=== PATIENT | female | born 1945 | race Caucasian/White ===

== ENCOUNTER 2017-05-08 11:00 | Emergency (ER) | payer MEDICARE, BC ==
[2017-05-08] MEDS ORDERED: Aspirin 81 MG Tab.Chew PO ONE (11:16)
[2017-05-08] MEDS ORDERED: Sodium Chloride 0.9% 10 ML Syringe FLUSH PRN (11:16)
[2017-05-08] MEDS ORDERED: LORazepam 2 MG/ML MDV IVPUSH ONE (11:16)
[2017-05-08] MEDS ORDERED: Alum Hydrox/Mag Hydrox/Simeth 30 ML, Lidocaine 2% 15 ML PO ONE ×2 (11:16)
[2017-05-08] MEDS ORDERED: Nitroglycerin 0.4 MG Tab.SL SL ONE (11:16)
--- NOTE | 2017-05-08 11:27 | EDM.PDOC ---
ED HPI GENERAL MEDICAL PROBLEM - General Chief Complaint: Chest Pain Stated Complaint: CHEST PAIN Time Seen by Provider: 05/08/17 11:09 Source of Information: Reports: Patient History Limitations: Reports: No Limitations - History of Present Illness INITIAL COMMENTS - FREE TEXT/NARRATIVE: Patient is a 71-year-old female who presents to the ED complaining of substernal chest discomfort that radiates into her left side of her neck and into between her scapula. This started 3 days ago and has progressively gotten worse. She is mildly short of breath. Worsened with palpation and also taking a deep breath. She has also noticed with increasing breathing while being anxious symptoms worsen. She has been mildly diaphoretic and nauseated. Pain is described as sharp pressure sensation. Currently a 10 out of 10. In addition she has some acid reflux to her epigastric region described as mild in nature. Patient states symptoms have been waxing and waning progressively worsening over the course of the last day. She is quite anxious with arrival to the ED. She has no prior history of similar symptoms. Denies any precipitating factors that may have caused this discomfort. She has no coronary artery disease or first degree relatives with such. Denies any fever/chills, dizziness, presyncope /syncopal episode, abdominal pain, pain with urination, swelling to lower extremities, PND, orthopnea, or tearing sensation to her back. Chest Pain Score (Numeric/FACES): 6 - Related Data Allergies Allergy/AdvReac Type Severity Reaction Status Date / Time Penicillins Allergy Difficulty Verified 05/08/17 11:18 Breathing clarithromycin AdvReac Stomach Verified 05/08/17 11:18 Upset erythromycin base AdvReac Stomach Verified 05/08/17 11:18 Upset Home Meds: Home Meds Acetaminophen/oxyCODONE [Percocet 325-5 MG] 1 - 2 tab PO Q4H PRN #20 tab [Rx] Albuterol Sulfate [Albuterol Sulfate HFA] 2 puff IH Q4H PRN 03/23/14 [History] Benzonatate [Tessalon Perles] 100 mg PO TID 03/23/14 [History] Dicyclomine [Bentyl] 10 mg PO QID PRN 03/23/14 [History] Esomeprazole [NexIUM] 40 mg PO DAILY 03/23/14 [History] Estrogens, Conjugated [Premarin] 1.25 mg PO DAILY 03/23/14 [History] FLUoxetine HCl [Prozac] 3 cap PO DAILY 03/23/14 [History] Lactobacillus Combination No.4 [Probiotic] 1 each PO DAILY 03/23/14 [History] Multivitamin [Multivitamins] 1 each PO DAILY 03/23/14 [History] Social & Family History - Tobacco Use Years of Tobacco use: 45 Used Tobacco, but Quit: No Month Tobacco Last Used: March Second Hand Smoke Exposure: No - Alcohol Use Days Per Week of Alcohol Use: 0 - Recreational Drug Use Recreational Drug Use: No Recreational Drug Type: Reports: Benzodiazepines, Oxycodone ED ROS GENERAL - Review of Systems Review Of Systems: ROS reveals no pertinent complaints other than HPI. ED EXAM, GENERAL - Physical Exam Exam: See Below Exam Limited By: No Limitations General Appearance: Alert, WD/WN, Anxious, Moderate Distress Ears: Hearing Grossly Normal Nose: Normal Inspection Throat/Mouth: Normal Voice, No Airway Compromise Neck: Normal Inspection, Supple Respiratory/Chest: No Respiratory Distress, Lungs Clear, Normal Breath Sounds, No Accessory Muscle Use, Other (Pain with palpation along the sternum, left side of the chest, and up to the left clavicle.) Cardiovascular: Normal Peripheral Pulses, Regular Rate, Rhythm, No Murmur Peripheral Pulses: 2+: Radial (L), Radial (R) GI/Abdominal: Normal Bowel Sounds, Soft, No Organomegaly, No Distention, Other ( mild tenderness to the epigastric region. ) Back Exam: Normal Inspection Extremities: Normal Inspection, Normal Range of Motion, Non-Tender, No Pedal Edema, Normal Capillary Refill Neurological: Alert, Oriented, CN II-XII Intact, Normal Cognition, No Motor/ Sensory Deficits Psychiatric: Normal Affect, Anxious Skin Exam: Warm, Dry, Intact, Normal Color, No Rash Course - Vital Signs Last Recorded V/S: Last Vital Signs Temp 98.4 F 05/08/17 11:19 Pulse 74 05/08/17 14:30 Resp 12 05/08/17 14:30 BP 110/70 05/08/17 14:30 Pulse Ox 98 05/08/17 14:30 - Orders/Labs/Meds Orders: Active Orders 24 hr Category Date Time Status EKG Documentation Completion [RC] STAT Care 05/08/17 11:15 Active Peripheral IV Care [RC] . DIRECTED Care 05/08/17 11:16 Active Peripheral IV Insertion Adult [OM.PC] Stat Oth 05/08/17 11:15 Ordered Labs: Laboratory Tests 05/08/17 05/08/17 05/08/17 Range/Units 11:10 11:10 11:10 WBC 8.51 (3.98-10.04) K/mm3 RBC 4.41 (3.98-5.22) M/mm3 Hgb 14.1 (11.2-15.7) gm/L Hct 42.1 (34.1-44.9) % MCV 95.5 H (79.4-94.8) fl MCH 32.0 (25.6-32.2) pg MCHC 33.5 (32.2-35.5) g/dl RDW Std Deviation 46.8 H (36.4-46.3) fL Plt Count 283 (182-369) K/mm3 MPV 9.8 (9.4-12.3) fl Neut % (Auto) 57.0 (34.0-71.1) % Lymph % (Auto) 34.7 (19.3-51.7) % Wagoner % (Auto) 6.8 (4.7-12.5) % Eos % (Auto) 1.1 (0.7-5.8) Baso % (Auto) 0.2 (0.1-1.2) % Neut # (Auto) 4.85 (1.56-6.13) K/mm3 Lymph # (Auto) 2.95 (1.18-3.74) K/mm3 Wagoner # (Auto) 0.58 H (0.24-0.36) K/mm3 Eos # (Auto) 0.09 (0.04-0.36) K/mm3 Baso # (Auto) 0.02 (0.01-0.08) K/mm3 PT 9.7 (8.0-13.0) SECONDS INR 0.90 APTT 20 L (22-36) SECONDS D-Dimer, Quantitative (0.19-0.59) mg/L Sodium 138 (136-145) mEq/L Potassium 4.2 (3.5-5.1) mEq/L Chloride 103 (98-107) mEq/L Carbon Dioxide 29 (21-32) mEq/L Anion Gap 10.2 (5-15) BUN 19 H (7-18) mg/dL Creatinine 1.0 (0.55-1.02) mg/dL Est Cr Clr Drug Dosing 43.92 mL/min Estimated GFR (MDRD) 55 (>60) mL/min BUN/Creatinine Ratio 19.0 H (14-18) Glucose 99 (80-115) mg/dL Calcium 10.2 H (8.5-10.1) mg/dL Total Bilirubin 0.3 (0.2-1.0) mg/dL AST 58 H (15-37) U/L ALT 73 H (14-59) U/L Alkaline Phosphatase 95 (46-116) U/L Troponin I < 0.017 (0.00-0.056) ng/mL C-Reactive Protein < 0.2 (<1.0) mg/dL Total Protein 7.1 (6.4-8.2) g/dl Albumin 4.1 (3.4-5.0) g/dl Globulin 3.0 gm/dL Albumin/Globulin Ratio 1.4 (1-2) Lipase (73-393) U/L Ethyl Alcohol (0.00) gm% 05/08/17 05/08/17 05/08/17 Range/Units 11:10 11:10 11:10 WBC (3.98-10.04) K/mm3 RBC (3.98-5.22) M/mm3 Hgb (11.2-15.7) gm/L Hct (34.1-44.9) % MCV (79.4-94.8) fl MCH (25.6-32.2) pg MCHC (32.2-35.5) g/dl RDW Std Deviation (36.4-46.3) fL Plt Count (182-369) K/mm3 MPV (9.4-12.3) fl Neut % (Auto) (34.0-71.1) % Lymph % (Auto) (19.3-51.7) % Wagoner % (Auto) (4.7-12.5) % Eos % (Auto) (0.7-5.8) Baso % (Auto) (0.1-1.2) % Neut # (Auto) (1.56-6.13) K/mm3 Lymph # (Auto) (1.18-3.74) K/mm3 Wagoner # (Auto) (0.24-0.36) K/mm3 Eos # (Auto) (0.04-0.36) K/mm3 Baso # (Auto) (0.01-0.08) K/mm3 PT (8.0-13.0) SECONDS INR APTT (22-36) SECONDS D-Dimer, Quantitative 0.49 (0.19-0.59) mg/L Sodium (136-145) mEq/L Potassium (3.5-5.1) mEq/L Chloride (98-107) mEq/L Carbon Dioxide (21-32) mEq/L Anion Gap (5-15) BUN (7-18) mg/dL Creatinine (0.55-1.02) mg/dL Est Cr Clr Drug Dosing mL/min Estimated GFR (MDRD) (>60) mL/min BUN/Creatinine Ratio (14-18) Glucose (80-115) mg/dL Calcium (8.5-10.1) mg/dL Total Bilirubin (0.2-1.0) mg/dL AST (15-37) U/L ALT (14-59) U/L Alkaline Phosphatase (46-116) U/L Troponin I (0.00-0.056) ng/mL C-Reactive Protein (<1.0) mg/dL Total Protein (6.4-8.2) g/dl Albumin (3.4-5.0) g/dl Globulin gm/dL Albumin/Globulin Ratio (1-2) Lipase 137 (73-393) U/L Ethyl Alcohol 0.00 (0.00) gm% Meds: Medications Discontinued Medications Generic Name Dose Route Start Last Admin Trade Name Freq PRN Reason Stop Dose Admin Aspirin 243 mg 05/08/17 11:16 05/08/17 11:32 Aspirin PO 05/08/17 11:17 243 mg ONETIME ONE Administration Al Hydroxide/Mg Hydroxide 30 0 ml 05/08/17 11:16 05/08/17 11:34 ml/ Lidocaine HCl 15 ml PO 05/08/17 11:17 45 ml ONETIME ONE Administration Hydromorphone HCl 0.5 mg 05/08/17 11:44 05/08/17 12:02 Dilaudid IVPUSH 05/08/17 11:45 0.5 mg ONETIME ONE Administration Sodium Chloride 1,000 mls @ 150 mls/hr 05/08/17 11:30 Normal Saline IV ASDIRECTED BLANCA Ketorolac Tromethamine 30 mg 05/08/17 11:59 05/08/17 12:12 Toradol IVPUSH 05/08/17 12:00 30 mg ONETIME ONE Administration Lorazepam 0.5 mg 05/08/17 11:16 05/08/17 11:37 Ativan IVPUSH 05/08/17 11:17 0.5 mg ONETIME ONE Administration Nitroglycerin 0.4 mg 05/08/17 11:16 05/08/17 11:38 Nitrostat SL 05/08/17 11:17 0.4 mg ONETIME ONE Administration Sodium Chloride 10 ml 05/08/17 11:16 05/08/17 11:35 Saline Flush FLUSH 10 ml ASDIRECTED PRN Administration Keep Vein Open - Re-Assessments/Exams Free Text/Narrative Re-Assessment/Exam: IV established with normal saline 150 mL per hour, aspirin to 43 mg by mouth, GI cocktail by mouth, lorazepam 0.5 mg IV, and nitroglycerin 0.4 mg sublingual. Initial labs and studies include CBC, chem 14, CRP, d-dimer, PTT/INR, PTT, troponin, lipase, ekg, and chest x-ray one view. EKG sinus rhythm at a rate of [address] changes noted. Chest x-ray reviewed: Lungs appear to be hyperinflated with no cardiomegaly present. No acute findings noted. Final interpretation pending. Reviewed with Dr. Kapadia. 1142 Reassessment, patient states pain has not improved with the above therapies. She is anxious. Ordered dilaudid 0.5mg IVP and toradol 30 mg IVP. 05/08/17 12:51 Labs reviewed: White blood cell count 8.51, hemoglobin 14.1, platelet count 283, d-dimer 0.49, sodium 138, potassium 4.2, creatinine 1.0, calcium 10.2, glucose 99, AST 58, AST 73, alk phosphatase 95, troponin less than 0.017, CRP pending, lipase 137. Serum EtOH: 0 CRP 0.2 05/08/17 1257 Reassessment, patient's pain is currently a 4 out of 10. She is requesting pain medications upon discharge. She currently takes Percocet 53 25 one to 2 tabs every 4 hours as needed for back pain. She states this medication is not working. She is requesting Dilaudid. She has an appointment with her PCP on Saturday and is able to get a refill of Percocet tabs at that point. 1422 Patient requesting to be discharged home. Pain is mild in nature. Discharge instructions as documented. Departure - Departure Time of Disposition: 14:24 Disposition: Home, Self-Care 01 Condition: Good Clinical Impression: Atypical chest pain, Chest wall pain, Anxiety Instructions: Nonspecific Chest Pain, [id number] Referrals: Sanjeev Lai MD [Primary Care Provider] - Forms: ED Department Discharge Additional Instructions: As discussed EKG, chest x-ray, labs did not reveal any concerns the pain is currently expressing related to her heart. Since been going on the past 3 days the specific enzyme troponin should have been elevated if this is related to her heart. Pain was reproducible with palpation. Thus etiology is most likely chest wall pain. Treatment is symptomatically care including warm compresses to the affected area as needed. Ibuprofen 600 mg every 6 hours with food and water. Tylenol 650 mg every 6 hours and alternating fashion with the ibuprofen for pain. For severe pain take Percocet tabs 1-2 tabs every 4-6 hours as needed. Do not take the Tylenol with the Percocet tabs. Follow-up with your PCP this coming Saturday as scheduled. I have provided small number of additional Percocet tabs to that you can take 2 tabs every 4-6 hours for this new onset of pain. Return to ED as needed for any new or worsening symptoms. - My Orders Last 24 Hours: My Active Orders 05/08/17 11:15 EKG Documentation Completion [RC] STAT Peripheral IV Insertion Adult [OM.PC] Stat 05/08/17 11:16 Peripheral IV Care [RC] . DIRECTED - Assessment/Plan Last 24 Hours: My Active Orders 05/08/17 11:15 EKG Documentation Completion [RC] STAT Peripheral IV Insertion Adult [OM.PC] Stat 05/08/17 11:16 Peripheral IV Care [RC] . DIRECTED
[2017-05-08] MEDS ORDERED: Sodium Chloride 0.9% 1,000 ML IV SCH (11:30)
[2017-05-08] MEDS ORDERED: HYDROmorphone 0.5 MG/0.5 ML Syringe IVPUSH ONE (11:44)
[2017-05-08] MEDS ORDERED: Ketorolac 30 MG/ML SDV IVPUSH ONE (11:59)
--- NOTE | 2017-05-08 12:07 | CR ---
Chest: Frontal view of the chest was obtained. Comparison: Previous chest x-ray of 03/08/14. Heart size appears within normal limits. Tortuous thoracic aorta is seen. Lungs are clear. Previous right shoulder surgery is noted. Impression: 1. Incidental findings. Nothing acute is seen on frontal chest x-ray. Diagnostic code #2
[2017-05-08 15:58] VITALS: BP 110/70
== END 2017-05-08 14:40 | disposition home or self-care (01) ==
LOC: JD.ED 11:00
DX: R07.89 Other chest pain (principal); F41.9 Anxiety disorder, unspecified; Z79.899 Other long term (current) drug therapy; Z88.0 Allergy status to penicillin; Z88.1 Allergy status to other antibiotic agents
CPT/HCPCS: 36415; 71010; 80053; 83690; 84484; 85025; 85379; 85610; 85730; 86140; 93005; 96361; 96374; 96375; 99285; A9270; G0480; J1170; J1885; J2060; J7050; 99284

== ENCOUNTER 2018-01-13 09:34 | Emergency (ER) | payer MEDICARE, BC ==
[2018-01-13 09:43] VITALS: BP 140/86
[2018-01-13] MEDS ORDERED: Aspirin 81 MG Tab.Chew PO ONE (10:08)
--- NOTE | 2018-01-13 10:13 | EDM.PDOC ---
<Elaine Roman - Last Filed: 01/13/18 11:21> ED HPI GENERAL MEDICAL PROBLEM - General Chief Complaint: Chest Pain Stated Complaint: CHEST PAINS/HEADACHE ON LEFT SIDE Time Seen by Provider: 01/13/18 10:11 - History of Present Illness INITIAL COMMENTS - FREE TEXT/NARRATIVE: Patient is a 72 YO female who presents today for chest pain. She states the pain started around 0230 this morning. The pain is on the left side and states it goes into her armpit and down her arm. Described as sharp and shooting in nature. She states that when she pushes on her chest she can feel the pain. She says it feels like its difficult to breath due to the pain. She took Advil and hydrocodone this morning. She is on hydrocodone for back pain. She smokes 9-10 cigarets per day. Drinks frequently sometimes daily 3 glasses of wine. She denies recent long car rides or travel, or calf pain. She also complains of a headache that has been present for 3-4 weeks. She has seen her PCP who treated her for URI. The headache has not resolved. She describes it as a throbbing pain in the left side of her head, face and into her left jaw. Causing blurred vision in the left eye. She reports nausea when the headache is severe. Denies vomiting, diarrhea, cough, or fever. - Related Data Allergies Allergy/AdvReac Type Severity Reaction Status Date / Time Penicillins Allergy Difficulty Verified 01/13/18 09:38 Breathing clarithromycin AdvReac Stomach Verified 01/13/18 09:38 Upset erythromycin base AdvReac Stomach Verified 01/13/18 09:38 Upset Home Meds: Home Meds Acetaminophen/oxyCODONE [Percocet 325-5 MG] 1 - 2 tab PO Q4H PRN #20 tab [Rx] Albuterol Sulfate [Albuterol Sulfate HFA] 2 puff IH Q4H PRN 03/23/14 [History] Benzonatate [Tessalon Perles] 100 mg PO TID 03/23/14 [History] Dicyclomine [Bentyl] 10 mg PO QID PRN 03/23/14 [History] Esomeprazole [NexIUM] 40 mg PO DAILY 03/23/14 [History] Estrogens, Conjugated [Premarin] 1.25 mg PO DAILY 03/23/14 [History] FLUoxetine HCl [Prozac] 3 cap PO DAILY 03/23/14 [History] Lactobacillus Combination No.4 [Probiotic] 1 each PO DAILY 03/23/14 [History] Multivitamin [Multivitamins] 1 each PO DAILY 03/23/14 [History] ED ROS GENERAL - Review of Systems Review Of Systems: See Below Constitutional: Reports: No Symptoms HEENT: Reports: Vision Change (blurred vision in left eye) Respiratory: Reports: Shortness of Breath. Denies: Wheezing, Cough Cardiovascular: Reports: Chest Pain (left chest and radiating into left armpit and down the left arm) GI/Abdominal: Reports: Nausea. Denies: Abdominal Pain, Constipation, Diarrhea, Vomiting Musculoskeletal: Reports: Back Pain (chronic) Skin: Reports: No Symptoms Neurological: Reports: Headache Psychiatric: Reports: No Symptoms ED EXAM, GENERAL - Physical Exam Exam: See Below Exam Limited By: No Limitations General Appearance: Alert, WD/WN, No Apparent Distress Eye Exam: Bilateral Eye: EOMI, PERRL Head: Atraumatic, Normocephalic Neck: Normal Inspection, Supple, Non-Tender Respiratory/Chest: No Respiratory Distress, Normal Breath Sounds, Other (chest tender to palpation on the left side around ribs 3-4, course breath sounds in the lower lobs bilaterally) Cardiovascular: Regular Rate, Rhythm, No Murmur, Tachycardia GI/Abdominal: Normal Bowel Sounds, Soft, Non-Tender Neurological: Alert, Oriented, CN II-XII Intact, Normal Cognition, No Motor/ Sensory Deficits Psychiatric: Normal Affect, Anxious Skin Exam: Warm, Dry, Intact, Normal Color, No Rash Course - Vital Signs Last Recorded V/S: Last Vital Signs Temp 36.4 C 01/13/18 09:38 Pulse 114 H 01/13/18 09:38 Resp 18 01/13/18 09:38 BP 140/86 01/13/18 09:38 Pulse Ox 97 01/13/18 09:38 - Orders/Labs/Meds Orders: Active Orders 24 hr Category Date Time Status Chest 1V Frontal [CR] Stat Exams 01/13/18 10:09 Taken Head wo Cont [CT] Stat Exams 01/13/18 10:10 Taken Ketorolac [Toradol] Med 04/23/18 10:15 Active 30 mg IVPUSH ONETIME Sodium Chloride 0.9% [Normal Saline] 1,000 ml Med 01/13/18 10:15 Active IV ASDIRECTED Medication Orders Sodium Chloride (Normal Saline) 1,000 mls @ 150 mls/hr IV ASDIRECTED BLANCA Last Admin: 01/13/18 10:19 Dose: 150 mls/hr Ketorolac Tromethamine (Toradol) 30 mg IVPUSH ONETIME BLANCA Last Admin: 01/13/18 10:20 Dose: 30 mg Labs: Laboratory Tests 01/13/18 01/13/18 01/13/18 Range/Units 09:47 09:47 09:47 WBC 7.68 (3.98-10.04) K/mm3 RBC 4.37 (3.98-5.22) M/mm3 Hgb 13.9 (11.2-15.7) gm/L Hct 42.4 (34.1-44.9) % MCV 97.0 H (79.4-94.8) fl MCH 31.8 (25.6-32.2) pg MCHC 32.8 (32.2-35.5) g/dl RDW Std Deviation 45.9 (36.4-46.3) fL Plt Count 229 (182-369) K/mm3 MPV 10.2 (9.4-12.3) fl Neutrophils % (Manual) 50 (40-60) % Band Neutrophils % 0 (0-10) % Lymphocytes % (Manual) 46 H (20-40) % Atypical Lymphs % 0 % Monocytes % (Manual) 2 (2-10) % Eosinophils % (Manual) 2 (0.7-5.8) % Basophils % (Manual) 0 L (0.1-1.2) Platelet Estimate Adequate RBC Morph Comment Normal D-Dimer, Quantitative 0.40 (0.19-0.50) mg/L Sodium 137 (136-145) mEq/L Potassium 4.0 (3.5-5.1) mEq/L Chloride 103 (98-107) mEq/L Carbon Dioxide 25 (21-32) mEq/L Anion Gap 13.0 (5-15) BUN 15 (7-18) mg/dL Creatinine 1.1 H (0.55-1.02) mg/dL Est Cr Clr Drug Dosing 39.37 mL/min Estimated GFR (MDRD) 49 (>60) mL/min BUN/Creatinine Ratio 13.6 L (14-18) Glucose 163 H (80-115) mg/dL Calcium 10.0 (8.5-10.1) mg/dL Magnesium 1.8 (1.8-2.4) mg/dl Total Bilirubin 0.4 (0.2-1.0) mg/dL AST 40 H (15-37) U/L ALT 61 H (14-59) U/L Alkaline Phosphatase 93 (46-116) U/L CK-MB (CK-2) 5.2 H (0-3.6) ng/ml Troponin I < 0.017 (0.00-0.056) ng/mL C-Reactive Protein < 0.2 (<1.0) mg/dL NT-Pro-B Natriuret Pep (0-125) pg/mL Total Protein 6.8 (6.4-8.2) g/dl Albumin 4.2 (3.4-5.0) g/dl Globulin 2.6 gm/dL Albumin/Globulin Ratio 1.6 (1-2) 01/13/18 Range/Units 09:47 WBC (3.98-10.04) K/mm3 RBC (3.98-5.22) M/mm3 Hgb (11.2-15.7) gm/L Hct (34.1-44.9) % MCV (79.4-94.8) fl MCH (25.6-32.2) pg MCHC (32.2-35.5) g/dl RDW Std Deviation (36.4-46.3) fL Plt Count (182-369) K/mm3 MPV (9.4-12.3) fl Neutrophils % (Manual) (40-60) % Band Neutrophils % (0-10) % Lymphocytes % (Manual) (20-40) % Atypical Lymphs % % Monocytes % (Manual) (2-10) % Eosinophils % (Manual) (0.7-5.8) % Basophils % (Manual) (0.1-1.2) Platelet Estimate RBC Morph Comment D-Dimer, Quantitative (0.19-0.50) mg/L Sodium (136-145) mEq/L Potassium (3.5-5.1) mEq/L Chloride (98-107) mEq/L Carbon Dioxide (21-32) mEq/L Anion Gap (5-15) BUN (7-18) mg/dL Creatinine (0.55-1.02) mg/dL Est Cr Clr Drug Dosing mL/min Estimated GFR (MDRD) (>60) mL/min BUN/Creatinine Ratio (14-18) Glucose (80-115) mg/dL Calcium (8.5-10.1) mg/dL Magnesium (1.8-2.4) mg/dl Total Bilirubin (0.2-1.0) mg/dL AST (15-37) U/L ALT (14-59) U/L Alkaline Phosphatase (46-116) U/L CK-MB (CK-2) (0-3.6) ng/ml Troponin I (0.00-0.056) ng/mL C-Reactive Protein (<1.0) mg/dL NT-Pro-B Natriuret Pep 57 (0-125) pg/mL Total Protein (6.4-8.2) g/dl Albumin (3.4-5.0) g/dl Globulin gm/dL Albumin/Globulin Ratio (1-2) Meds: Medications Generic Name Dose Route Start Last Admin Trade Name Freq PRN Reason Stop Dose Admin Sodium Chloride 1,000 mls @ 150 mls/hr 01/13/18 10:15 01/13/18 10:19 Normal Saline IV 150 mls/hr ASDIRECTED BLANCA Administration Ketorolac Tromethamine 30 mg 01/13/18 10:15 01/13/18 10:20 Toradol IVPUSH 30 mg ONETIME BLANCA Administration Discontinued Medications Generic Name Dose Route Start Last Admin Trade Name Freq PRN Reason Stop Dose Admin Aspirin 324 mg 01/13/18 10:08 01/13/18 10:19 Aspirin PO 01/13/18 10:09 324 mg ONETIME ONE Administration Lorazepam 1 mg 01/13/18 10:30 01/13/18 10:39 Ativan IVPUSH 01/13/18 10:31 1 mg ONETIME ONE Administration - Re-Assessments/Exams Free Text/Narrative Re-Assessment/Exam: 01/13/18 9:56 Patient is quite anxious in the room today. Chest pain is reproducible to palpation around ribs 3-4. The pain is also reproduced with palpation in the armpit. Patient is neurologically intact with no focal findings. Labs have been ordered to include CBC, CBP, D-dimer, troponin I, Ck-MB, chest Xray and head CT. 01/13/18 11:05 Patient is still very anxious about her headache. Patient has received Ativan. I discussed CT results with the patient. There are no signs of acute changes that would be causing her headaches. I discussed with the patient that we can control her pain today but I believe her headache are refractory headaches from the ibuprofen and narcotics that she uses. She does have an appointment scheduled with a neurologist in a couple months. Departure - Departure Disposition: Home, Self-Care 01 Clinical Impression: Chronic daily headache, Non-cardiac chest pain, Chest wall pain Referrals: Sanjeev Lai MD [Primary Care Provider] - Forms: ED Department Discharge Additional Instructions: Evaluation the emergency room today in regards to presentation primarily for chest pain and identified to be significantly tender throughout the left ribs particularly the third fourth and fifth left mid axillary line. This radiates into your armpit. Suspect characteristic of inflammation of the rib lining in this area secondary to osteoporosis. X-ray was done and shows no obvious abnormalities within the ribs themselves. Heart silhouette is normal and the lungs are clear. Second problem was chronic headache for over a month. Chronic daily headache is likely related to excessive use of Motrin and pain medications. CT of the head was done at your request and reveals no intracranial bleeding or mass effect. 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 You are treated with intravenous anti-inflammatory medications initial medication was aspirin 324 mg for chest pain. Until labs came back and ruled out any evidence of heart related illness. Toradol 30 mg was given intravenously for inflammation and headache relief. Apparently it did not help much. Decision was made not to use narcotics as you are on narcotics chronically and/or on a pain contract. Case discussed with your primary care physician Dr. Lai and he agreed with this course of management. - My Orders Last 24 Hours: My Active Orders 01/13/18 10:09 Chest 1V Frontal [CR] Stat 01/13/18 10:10 Head wo Cont [CT] Stat 01/13/18 10:15 Ketorolac [Toradol] 30 mg IVPUSH ONETIME Sodium Chloride 0.9% [Normal Saline] 1,000 ml IV ASDIRECTED - Assessment/Plan Last 24 Hours: My Active Orders 01/13/18 10:09 Chest 1V Frontal [CR] Stat 01/13/18 10:10 Head wo Cont [CT] Stat 01/13/18 10:15 Ketorolac [Toradol] 30 mg IVPUSH ONETIME Sodium Chloride 0.9% [Normal Saline] 1,000 ml IV ASDIRECTED <González Moffett - Last Filed: 01/13/18 11:51> ED HPI GENERAL MEDICAL PROBLEM - General Source of Information: Reports: Patient History Limitations: Reports: No Limitations - History of Present Illness Treatments TELEPHONE INTERVIEWER: Reports: Other (see below) Other Treatments TELEPHONE INTERVIEWER: advil 600 mg and Hydrocodone at 0600. Headache Pain Score (Numeric/FACES): 9 Chest Pain Score (Numeric/FACES): 9 Past Medical History Other HEENT History: wears glasses Respiratory History: Reports: SOB Neurological History: Reports: Headaches, Chronic Psychiatric History: Reports: Anxiety, Depression - Past Surgical History HEENT Surgical History: Reports: Cataract Surgery, Tonsillectomy GI Surgical History: Reports: Appendectomy, Cholecystectomy, Colonoscopy Female Surgical History: Reports: Hysterectomy Neurological Surgical History: Reports: Lumbar Spine Social & Family History - Tobacco Use Smoking Status *Q: Current Every Day Smoker Years of Tobacco use: 50 Packs/Tins Daily: 0.5 Used Tobacco, but Quit: No Month/Year Tobacco Last Used: March Second Hand Smoke Exposure: No - Caffeine Use Caffeine Use: Reports: Coffee - Alcohol Use Days Per Week of Alcohol Use: 0 Number of Drinks Per Day: 2 Total Drinks Per Week: 0 - Recreational Drug Use Recreational Drug Use: No Recreational Drug Type: Reports: Benzodiazepines, Oxycodone EKG INTERPRETATION EKG Date: 01/13/18 Time: 09:45 Rhythm: Other Rate (Beats/Min): [address] [place]: Normal P-Wave: Absent (P waves inverted in all leads suggesting ectopic atrial rhythm.) QRS: Normal ST-T: Normal QT: Prolonged (Minimally prolonged.) EKG Interpretation Comments: Abnormal ECG. No ischemic changes identified. Course - Orders/Labs/Meds Labs: Laboratory Tests 01/13/18 01/13/18 01/13/18 Range/Units 09:47 09:47 09:47 WBC 7.68 (3.98-10.04) K/mm3 RBC 4.37 (3.98-5.22) M/mm3 Hgb 13.9 (11.2-15.7) gm/L Hct 42.4 (34.1-44.9) % MCV 97.0 H (79.4-94.8) fl MCH 31.8 (25.6-32.2) pg MCHC 32.8 (32.2-35.5) g/dl RDW Std Deviation 45.9 (36.4-46.3) fL Plt Count 229 (182-369) K/mm3 MPV 10.2 (9.4-12.3) fl Neutrophils % (Manual) 50 (40-60) % Band Neutrophils % 0 (0-10) % Lymphocytes % (Manual) 46 H (20-40) % Atypical Lymphs % 0 % Monocytes % (Manual) 2 (2-10) % Eosinophils % (Manual) 2 (0.7-5.8) % Basophils % (Manual) 0 L (0.1-1.2) Platelet Estimate Adequate RBC Morph Comment Normal D-Dimer, Quantitative 0.40 (0.19-0.50) mg/L Sodium 137 (136-145) mEq/L Potassium 4.0 (3.5-5.1) mEq/L Chloride 103 (98-107) mEq/L Carbon Dioxide 25 (21-32) mEq/L Anion Gap 13.0 (5-15) BUN 15 (7-18) mg/dL Creatinine 1.1 H (0.55-1.02) mg/dL Est Cr Clr Drug Dosing 39.37 mL/min Estimated GFR (MDRD) 49 (>60) mL/min BUN/Creatinine Ratio 13.6 L (14-18) Glucose 163 H (80-115) mg/dL Calcium 10.0 (8.5-10.1) mg/dL Magnesium 1.8 (1.8-2.4) mg/dl Total Bilirubin 0.4 (0.2-1.0) mg/dL AST 40 H (15-37) U/L ALT 61 H (14-59) U/L Alkaline Phosphatase 93 (46-116) U/L CK-MB (CK-2) 5.2 H (0-3.6) ng/ml Troponin I < 0.017 (0.00-0.056) ng/mL C-Reactive Protein < 0.2 (<1.0) mg/dL NT-Pro-B Natriuret Pep (0-125) pg/mL Total Protein 6.8 (6.4-8.2) g/dl Albumin 4.2 (3.4-5.0) g/dl Globulin 2.6 gm/dL Albumin/Globulin Ratio 1.6 (1-2) 01/13/18 Range/Units 09:47 WBC (3.98-10.04) K/mm3 RBC (3.98-5.22) M/mm3 Hgb (11.2-15.7) gm/L Hct (34.1-44.9) % MCV (79.4-94.8) fl MCH (25.6-32.2) pg MCHC (32.2-35.5) g/dl RDW Std Deviation (36.4-46.3) fL Plt Count (182-369) K/mm3 MPV (9.4-12.3) fl Neutrophils % (Manual) (40-60) % Band Neutrophils % (0-10) % Lymphocytes % (Manual) (20-40) % Atypical Lymphs % % Monocytes % (Manual) (2-10) % Eosinophils % (Manual) (0.7-5.8) % Basophils % (Manual) (0.1-1.2) Platelet Estimate RBC Morph Comment D-Dimer, Quantitative (0.19-0.50) mg/L Sodium (136-145) mEq/L Potassium (3.5-5.1) mEq/L Chloride (98-107) mEq/L Carbon Dioxide (21-32) mEq/L Anion Gap (5-15) BUN (7-18) mg/dL Creatinine (0.55-1.02) mg/dL Est Cr Clr Drug Dosing mL/min Estimated GFR (MDRD) (>60) mL/min BUN/Creatinine Ratio (14-18) Glucose (80-115) mg/dL Calcium (8.5-10.1) mg/dL Magnesium (1.8-2.4) mg/dl Total Bilirubin (0.2-1.0) mg/dL AST (15-37) U/L ALT (14-59) U/L Alkaline Phosphatase (46-116) U/L CK-MB (CK-2) (0-3.6) ng/ml Troponin I (0.00-0.056) ng/mL C-Reactive Protein (<1.0) mg/dL NT-Pro-B Natriuret Pep 57 (0-125) pg/mL Total Protein (6.4-8.2) g/dl Albumin (3.4-5.0) g/dl Globulin gm/dL Albumin/Globulin Ratio (1-2) - Re-Assessments/Exams Free Text/Narrative Re-Assessment/Exam: 01/13/18: CT of the head reveals no intracranial bleeding or mass effect. There is diffuse small vessel ischemic changes in both basal ganglia. 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 S x -ray revealed her to be rotated slightly to the right. This makes the superior mediastinum look a little more prominent with a tortuous thoracic aorta. Chronic silhouette is otherwise within normal limits. Visualized portions of the lungs are clear. 01/13/18 11:07 Labs are back. White count is 7.68 with normal differential of 50% neutrophils no bands reported. Hemoglobin is 13.9 with hematocrit of 42.4. Platelet count is 229,000. D-dimer is normal at 0.40. Sodium is 137 with potassium of 4.0. Toward is 103 with a bicarbonate of 25. And a gap is 13.0. BUN is 15 with a creatinine of 1.1. GFR is 49. Glucose is mildly elevated 163. Calcium 10.0. Magnesium 1.8. Total bilirubin 0.4. AST is 40 with an AST of 61. Alkaline phosphatase is normal at 93. Seek KUB fraction mildly elevated at 5.2. Troponin I is less than 0.017. BNP is 57. Patient is unhappy with the treatment she has thus received. She reports no relief of her headache. Headache for over a month is likely tension or originates in her cervical spine. We have a feeling that she may be narcotic seeking. She is wishing to leave the department at this time and will therefore be to leave AGAINST MEDICAL ADVICE. Reassured that all of her lab work and chest x-ray and ECG are within normal limits. Patient is primarily frustrated by not receiving narcotics for her chronic headache. Departure - Departure Time of Disposition: 11:48 Condition: Fair
[2018-01-13] MEDS ORDERED: Ketorolac 30 MG/ML SDV IVPUSH SCH (10:15)
[2018-01-13] MEDS ORDERED: Sodium Chloride 0.9% 1,000 ML IV SCH (10:15)
[2018-01-13] MEDS ORDERED: LORazepam 2 MG/ML SDV IVPUSH ONE (10:30)
--- NOTE | 2018-01-13 12:02 | CT ---
Head CT Technique: Multiple axial sections through the brain were obtained. Intravenous contrast was not utilized. Comparison: Previous head CT exam of 01/03/12. Findings: Ventricles along with basal cisterns and sulci over the convexities are within normal limits for the patient's age. 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 No other abnormal parenchymal densities are seen. No evidence of intracranial hemorrhage. No midline shift or mass effect is seen. Moderate mucosal thickening is seen within the sphenoid sinus which is chronic and appears fairly stable from previous head CT exam. No acute calvarial abnormality is identified. Impression: 1. Chronic sinus findings within the sphenoid sinus. 2. Senescent change as noted above. 3. No acute intracranial abnormality is identified on noncontrast head CT exam. Diagnostic code #2 Agree with preliminary report issued by [facility] ([facility] preliminary report dictated on 01/13/18, 11:48 AM Central Time)
--- NOTE | 2018-01-13 13:01 | CR ---
Chest: Frontal view of the chest was obtained. Comparison: Prior chest x-ray of 05/08/17. Heart size is normal. Tortuous thoracic aorta is seen. Lungs are clear. Bony structures are unremarkable. Surgical clips are seen within the upper right abdomen. Impression: 1. Nothing acute is seen on frontal chest x-ray. Diagnostic code #2
== END 2018-01-13 11:58 | disposition home or self-care (01) ==
LOC: JD.ED 09:34
DX: R07.89 Other chest pain (principal); R51 Headache; Z88.0 Allergy status to penicillin; Z88.1 Allergy status to other antibiotic agents; Z79.899 Other long term (current) drug therapy
CPT/HCPCS: 36415; 70450; 71045; 80053; 82553; 83735; 83880; 84484; 85025; 85379; 86140; 96361; 96374; 96375; 99285; A9270; J1885; J2060; J7040; 93010; 99284

== ENCOUNTER 2018-03-27 08:51 | Emergency (ER) | payer MEDICARE, BC ==
[2018-03-27] MEDS ORDERED: Sodium Chloride 0.9% 10 ML Syringe FLUSH PRN (09:17)
[2018-03-27] MEDS ORDERED: HYDROmorphone 0.5 MG/0.5 ML SYRINGE IVPUSH ONE ×4 (09:18→14:44)
--- NOTE | 2018-03-27 09:31 | EDM.PDOC ---
ED HPI GENERAL MEDICAL PROBLEM - General Chief Complaint: Respiratory Problem Stated Complaint: [facility] Time Seen by Provider: 03/27/18 09:09 Source of Information: Reports: Patient, EMS History Limitations: Reports: No Limitations - History of Present Illness INITIAL COMMENTS - FREE TEXT/NARRATIVE: The patient presents from [facility] for shortness of breath, cough and chest pain. This has been going on for about 2 weeks. She went to the walk in clinic over at [place] 2 days ago and she was diagnosed with LLL pneumonia and she was put on prednisone and doxycycline. She feels she is worse. She went back to the clinic and they were doing a CT and she got short of breath. She was brought here by EMS. She was given a breathing treatment on the way here. She feels feverish. She has congestion, runny nose , and productive cough. She has tightness in her chest. She has shortness of breath and wheezing at times. She has no abdominal pain, nausea or vomiting. She has no history of asthma or COPD. She smokes. She also has a headache. Onset: Gradual Duration: Week(s): (2) Location: Reports: Chest Quality: Reports: Other (Tightness) Severity: Moderate Improves with: Reports: None Worsens with: Reports: None Associated Symptoms: Reports: Chest Pain, Cough, cough w sputum, Fever/Chills, Shortness of Breath. Denies: Headaches, Nausea/Vomiting Treatments FINAL TESTER: Reports: Breathing Treatments Headache Pain Score (Numeric/FACES): 7 - Related Data Allergies Allergy/AdvReac Type Severity Reaction Status Date / Time Penicillins Allergy Difficulty Verified 01/13/18 09:38 Breathing clarithromycin AdvReac Stomach Verified 01/13/18 09:38 Upset erythromycin base AdvReac Stomach Verified 01/13/18 09:38 Upset Home Meds: Home Meds Albuterol Sulfate [Albuterol Sulfate HFA] 2 puff IH Q4H PRN 03/23/14 [History] Benzonatate [Tessalon Perles] 100 mg PO TID PRN 03/23/14 [History] Dicyclomine [Bentyl] 10 mg PO QID PRN 03/23/14 [History] FLUoxetine HCl [Prozac] 3 cap PO DAILY 03/23/14 [History] Lactobacillus Combination No.4 [Probiotic] 1 - 2 each PO DAILY 03/23/14 [History ] Acetaminophen 1 - 2 tab PO Q6H PRN 03/27/18 [History] Albuterol [Proventil Neb Soln] 1 ampule INH QID PRN 03/27/18 [History] Aspirin 81 mg PO DAILY 03/27/18 [History] Cholecalciferol (Vitamin D3) [Vitamin D3] 3,000 unit PO DAILY 03/27/18 [History] ClonazePAM [KlonoPIN] 0.5 mg PO BID 03/27/18 [History] Codeine/Promethazine [Phenergan with Codeine] 5 - 10 ml PO Q6HR PRN #240 ml 02/07 [Rx] Doxycycline [Doxycycline Hyclate] 100 mg PO BID 03/27/18 [History] Fluticasone Propionate [Flonase] 1 spray NASBOTH BID 03/27/18 [History] Hydrocodone/Acetaminophen [Hydrocodon-Acetaminophn 10-325] 1 tab PO Q6H PRN 02/07 [History] Loratadine/Pseudoephedrine [Loratadine-D 12HR] 1 tab PO DAILY PRN 03/27/18 [ History] Jj B-Stress. 3 tab PO DAILY 03/27/18 [History] predniSONE [Prednisone] 20 mg PO DAILY 03/27/18 [History] Past Medical History Other HEENT History: wears glasses Respiratory History: Reports: SOB Neurological History: Reports: Headaches, Chronic Psychiatric History: Reports: Anxiety, Depression - Past Surgical History HEENT Surgical History: Reports: Cataract Surgery, Tonsillectomy GI Surgical History: Reports: Appendectomy, Cholecystectomy, Colonoscopy Female Surgical History: Reports: Hysterectomy Neurological Surgical History: Reports: Lumbar Spine Social & Family History - Tobacco Use Smoking Status *Q: Current Every Day Smoker Years of Tobacco use: 40 Packs/Tins Daily: 0.4 - Caffeine Use Caffeine Use: Reports: Coffee - Recreational Drug Use Recreational Drug Use: No ED ROS GENERAL - Review of Systems Review Of Systems: See Below Constitutional: Reports: No Symptoms HEENT: Reports: No Symptoms Respiratory: Reports: Shortness of Breath, Wheezing, Cough Cardiovascular: Reports: Chest Pain Endocrine: Reports: No Symptoms GI/Abdominal: Reports: No Symptoms : Reports: No Symptoms Musculoskeletal: Reports: No Symptoms Skin: Reports: No Symptoms ED EXAM, GENERAL - Physical Exam Exam: See Below Exam Limited By: No Limitations General Appearance: Alert, No Apparent Distress Ears: Normal External Exam Nose: Normal Inspection Head: Atraumatic, Normocephalic Neck: Normal Inspection Respiratory/Chest: No Respiratory Distress, Decreased Breath Sounds, Wheezing ( Mild) Cardiovascular: Regular Rate, Rhythm, No Edema, No Murmur GI/Abdominal: Soft, Non-Tender, No Organomegaly, No Mass Back Exam: Normal Inspection Extremities: Normal Inspection EKG INTERPRETATION EKG Date: 03/27/18 Time: 09:23 Rhythm: Other (Sinus tachycardia) Rate (Beats/Min): 112 [place]: Normal P-Wave: Present QRS: Normal ST-T: Normal QT: Normal Course - Vital Signs Last Recorded V/S: Last Vital Signs Temp 98.7 F 03/27/18 08:56 Pulse 95 03/27/18 08:56 Resp 12 03/27/18 08:56 BP 123/84 03/27/18 08:56 Pulse Ox 99 03/27/18 08:56 - Orders/Labs/Meds Orders: Active Orders 24 hr Category Date Time Status Cardiac Monitoring [RC] . DIRECTED Care 03/27/18 09:17 Active EKG Documentation Completion [RC] STAT Care 03/27/18 09:18 Active Oxygen Therapy [RC] PRN Care 03/27/18 09:17 Active Peripheral IV Care [RC] . DIRECTED Care 03/27/18 09:18 Active MYCOPLASMA PNEUMONIAE IGM AB [CHEM] Stat Lab 03/27/18 09:45 Received Sodium Chloride 0.9% [Normal Saline] 100 ml Med 03/27/18 10:45 Active IV ASDIRECTED Sodium Chloride 0.9% [Saline Flush] Med 03/27/18 09:17 Active 10 ml FLUSH ASDIRECTED PRN Peripheral IV Insertion Adult [OM.PC] Stat Oth 03/27/18 09:17 Ordered Medication Orders Sodium Chloride (Normal Saline) 100 mls @ 60 mls/hr IV ASDIRECTED BLANCA Last Admin: 03/27/18 11:13 Dose: 60 mls/hr Sodium Chloride (Saline Flush) 10 ml FLUSH ASDIRECTED PRN PRN Reason: Keep Vein Open Last Admin: 03/27/18 09:33 Dose: 10 ml Labs: Laboratory Tests 07/05/18 07/05/18 Range/Units 09:45 09:45 WBC 8.45 (3.98-10.04) K/mm3 RBC 4.47 (3.98-5.22) M/mm3 Hgb 14.2 (11.2-15.7) gm/L Hct 43.6 (34.1-44.9) % MCV 97.5 H (79.4-94.8) fl MCH 31.8 (25.6-32.2) pg MCHC 32.6 (32.2-35.5) g/dl RDW Std Deviation 49.0 H (36.4-46.3) fL Plt Count 330 (182-369) K/mm3 MPV 8.8 L (9.4-12.3) fl Neut % (Auto) 79.9 H (34.0-71.1) % Lymph % (Auto) 17.8 L (19.3-51.7) % [place] % (Auto) 2.0 L (4.7-12.5) % Eos % (Auto) 0 L (0.7-5.8) Baso % (Auto) 0.1 (0.1-1.2) % Neut # (Auto) 6.75 H (1.56-6.13) K/mm3 Lymph # (Auto) 1.50 (1.18-3.74) K/mm3 [place] # (Auto) 0.17 L (0.24-0.36) K/mm3 Eos # (Auto) 0.00 L (0.04-0.36) K/mm3 Baso # (Auto) 0.01 (0.01-0.08) K/mm3 Sodium 137 (136-145) mEq/L Potassium 4.1 (3.5-5.1) mEq/L Chloride 103 (98-107) mEq/L Carbon Dioxide 23 (21-32) mEq/L Anion Gap 15.1 H (5-15) BUN 24 H (7-18) mg/dL Creatinine 1.1 H (0.55-1.02) mg/dL Est Cr Clr Drug Dosing 39.37 mL/min Estimated GFR (MDRD) 49 (>60) mL/min BUN/Creatinine Ratio 21.8 H (14-18) Glucose 132 H (80-115) mg/dL Calcium 9.7 (8.5-10.1) mg/dL Total Bilirubin 0.3 (0.2-1.0) mg/dL AST 25 (15-37) U/L ALT 48 (14-59) U/L Alkaline Phosphatase 88 (46-116) U/L Troponin I < 0.017 (0.00-0.056) ng/mL Total Protein 7.0 (6.4-8.2) g/dl Albumin 4.0 (3.4-5.0) g/dl Globulin 3.0 gm/dL Albumin/Globulin Ratio 1.3 (1-2) Meds: Medications Generic Name Dose Route Start Last Admin Trade Name Freq PRN Reason Stop Dose Admin Sodium Chloride 100 mls @ 60 mls/hr 03/27/18 10:45 03/27/18 11:13 Normal Saline IV 60 mls/hr ASDIRECTED BLANCA Administration Sodium Chloride 10 ml 03/27/18 09:17 03/27/18 09:33 Saline Flush FLUSH 10 ml ASDIRECTED PRN Administration Keep Vein Open Discontinued Medications Generic Name Dose Route Start Last Admin Trade Name Freq PRN Reason Stop Dose Admin Hydromorphone HCl 0.5 mg 03/27/18 09:18 03/27/18 09:31 Dilaudid IVPUSH 03/27/18 09:19 0.5 mg ONETIME ONE Administration Hydromorphone HCl 0.5 mg 03/27/18 10:14 03/27/18 10:19 Dilaudid IVPUSH 03/27/18 10:15 0.5 mg ONETIME ONE Administration Hydromorphone HCl 0.5 mg 03/27/18 12:39 03/27/18 12:54 Dilaudid IVPUSH 03/27/18 12:40 0.5 mg ONETIME ONE Administration Ceftriaxone Sodium 2 gm/ 100 mls @ 100 mls/hr 03/27/18 12:38 03/27/18 12:55 Sodium Chloride IV 03/27/18 13:37 100 mls/hr ONETIME ONE Administration Iopamidol 100 ml 03/27/18 10:36 03/27/18 11:13 Isovue-370 (76%) IVPUSH 03/27/18 10:37 100 ml ONETIME ONE Administration Lorazepam 1 mg 03/27/18 10:37 03/27/18 10:43 Ativan IVPUSH 03/27/18 10:38 1 mg ONETIME ONE Administration Sodium Chloride 10 ml 03/27/18 10:36 03/27/18 11:13 Saline Flush FLUSH 03/27/18 10:37 10 ml ONETIME ONE Administration - Re-Assessments/Exams Free Text/Narrative Re-Assessment/Exam: 03/27/18 09:54 I ordered an IV saline lock, EKG, and labs. I will check on what CTs they did and see if I can get results. I gave her some dilaudid for her headache. 03/27/18 14:35 Her EKG shows nothing acute. Her CBC looks good with a normal WBC. Her creatinine is slightly elevated at 1.1. Her glucose is elevated at 132. Her troponin is negative. Her CT of her chest shows nothing seen to indicate pulmonary embolism. Other incidental findings. No significant change is seen from the previous CT abdomen and pelvis exam. Her CT of her head from the clinic shows mild mucoperiosteal thickening in the ethmoid air cells. Of incidental note is mild mucoperiosteal thickening in the sphenoid sinus as well. I gave her a dose of rocephin. I let the patient know the results and she is frustrated with me that she is not better for the past few months. It appears from her labs and CT that she is getting better. I talked with Dr Llanos to see if she can get admitted. She agreed with me that she did not need to be admitted. I will discharge the patient to home and give her some phenergan with codeine. I will have her keep taking her doxycycline and prednisone. Departure - Departure Time of Disposition: 14:45 Disposition: Home, Self-Care 01 Condition: Good Clinical Impression: Bronchitis, Congestion of throat - Discharge Information Prescriptions: Codeine/Promethazine [Phenergan with Codeine] 5 - 10 ml PO Q6HR PRN #240 ml PRN Reason: Cough Referrals: Sanjeev Lai MD [Primary Care Provider] - 1 Week Forms: ED Department Discharge Additional Instructions: Keep taking your medication as prescribed. Take the phenergan with codeine 5 to 10mls by mouth every 6 hours as needed for cough. Follow up with your doctor in 1 week. - My Orders Last 24 Hours: My Active Orders 07/05/18 09:17 Cardiac Monitoring [RC] . DIRECTED Oxygen Therapy [RC] PRN Sodium Chloride 0.9% [Saline Flush] 10 ml FLUSH ASDIRECTED PRN Peripheral IV Insertion Adult [OM.PC] Stat 03/27/18 09:18 EKG Documentation Completion [RC] STAT Peripheral IV Care [RC] . DIRECTED 03/27/18 09:45 MYCOPLASMA PNEUMONIAE IGM AB [CHEM] Stat 03/27/18 10:45 Sodium Chloride 0.9% [Normal Saline] 100 ml IV ASDIRECTED - Assessment/Plan Last 24 Hours: My Active Orders 03/27/18 09:17 Cardiac Monitoring [RC] . DIRECTED Oxygen Therapy [RC] PRN Sodium Chloride 0.9% [Saline Flush] 10 ml FLUSH ASDIRECTED PRN Peripheral IV Insertion Adult [OM.PC] Stat 03/27/18 09:18 EKG Documentation Completion [RC] STAT Peripheral IV Care [RC] . DIRECTED 03/27/18 09:45 MYCOPLASMA PNEUMONIAE IGM AB [CHEM] Stat 03/27/18 10:45 Sodium Chloride 0.9% [Normal Saline] 100 ml IV ASDIRECTED
[2018-03-27] MEDS ORDERED: Sodium Chloride 0.9% 10 ML Syringe FLUSH ONE (10:36)
[2018-03-27] MEDS ORDERED: Iopamidol 755 Mg/ML 100 ML Bottle IVPUSH ONE (10:36)
[2018-03-27] MEDS ORDERED: LORazepam 2 MG/ML SDV IVPUSH ONE (10:37)
[2018-03-27] MEDS ORDERED: Sodium Chloride 0.9% 100 ML IV SCH (10:45)
[2018-03-27] MEDS ORDERED: cefTRIAXone 2 GM in Sodium Chloride 0.9% 100 ML IV ONE (12:38)
--- NOTE | 2018-03-27 12:45 | CT ---
CT chest Technique: Multiple axial sections through the chest were obtained. Intravenous contrast was utilized. Study has been performed as a pulmonary angiogram protocol. Comparison: Prior CT chest performed as a pulmonary angiogram protocol dated 03/10/15. Findings: Pulmonary arteries are well opacified. No filling defects are seen to indicate pulmonary embolism. Mediastinum and hilar regions show no adenopathy or mass. Ascending aorta is slightly ectatic at 3.3 cm which is incidental. No mediastinal mass or adenopathy is seen. Hilar regions appear within normal limits. No pericardial thickening is seen. Surgical clips are seen from prior cholecystectomy. Lungs are clear. No pleural effusions are seen. Bone window settings were reviewed which show no acute osseous abnormality. Impression: 1. Nothing seen to indicate pulmonary embolism. 2. Other incidental findings. No significant change is seen from previous CT abdomen and pelvis exam. Diagnostic code #2
[2018-03-27 14:59] VITALS: BP 123/71
== END 2018-03-27 15:05 | disposition home or self-care (01) ==
LOC: JD.ED 08:51
DX: J40 Bronchitis, not specified as acute or chronic (principal); F17.210 Nicotine dependence, cigarettes, uncomplicated; Z88.0 Allergy status to penicillin; Z88.1 Allergy status to other antibiotic agents; Z79.899 Other long term (current) drug therapy
CPT/HCPCS: 36415; 71275; 80053; 84484; 85025; 86738; 93005; 96365; 96375; 96376; 99285; J0696; J1170; J2060; J7030; J7050; Q9967

== ENCOUNTER 2018-12-13 17:07 | Emergency (ER) | payer MEDICARE, BC ==
[2018-12-13 17:20] VITALS: BP 138/85
[2018-12-13] MEDS ORDERED: Sodium Chloride 0.9% 10 ML Syringe FLUSH PRN (17:32)
[2018-12-13] MEDS ORDERED: HYDROmorphone 1 MG/ML Syringe IVPUSH ONE ×2 (17:34→19:15)
--- NOTE | 2018-12-13 18:53 | EDM.PDOC ---
ED HPI GENERAL MEDICAL PROBLEM - General Chief Complaint: Chest Pain Stated Complaint: CHEST PAIN ARM PAIN SOB Time Seen by Provider: 12/13/18 17:25 Source of Information: Reports: Patient History Limitations: Reports: No Limitations - History of Present Illness INITIAL COMMENTS - FREE TEXT/NARRATIVE: The patient presents with chest pain and right arm and neck pain. She went to see Dr Jerry bowman in [place] yesterday for a nerve stimulator for her back. Her heart rate was fast in the 120s and her BP was elevated in the 180s and 170s systolic. She developed chest pain and some shortness of breath. She also has right neck pain and right arm pain. This has been a problem for a few days. She is very anxious. She has no fever, chills, cough, abdominal pain, nausea or vomiting. She has not had any trouble with her blood pressure before and she does not have any heart disease. Onset: Gradual Duration: Day(s): (2) Location: Reports: Chest Quality: Reports: Sharp Severity: Moderate Improves with: Reports: None Worsens with: Reports: None Associated Symptoms: Reports: Chest Pain, Shortness of Breath. Denies: Confusion, Cough, Fever/Chills, Headaches, Nausea/Vomiting Chest Pain Score (Numeric/FACES): 7 - Related Data Allergies Allergy/AdvReac Type Severity Reaction Status Date / Time Penicillins Allergy Difficulty Verified 12/13/18 17:16 Breathing clarithromycin AdvReac Stomach Verified 12/13/18 17:16 Upset erythromycin base AdvReac Stomach Verified 12/13/18 17:16 Upset Home Meds: Home Meds Albuterol Sulfate [Albuterol Sulfate HFA] 2 puff IH Q4H PRN 03/23/14 [History] Benzonatate [Tessalon Perles] 100 mg PO TID PRN 03/23/14 [History] Dicyclomine [Bentyl] 10 mg PO QID PRN 03/23/14 [History] FLUoxetine HCl [Prozac] 3 cap PO DAILY 03/23/14 [History] Lactobacillus Combination No.4 [Probiotic] 1 - 2 each PO DAILY 03/23/14 [History ] Acetaminophen 1 - 2 tab PO Q6H PRN 03/27/18 [History] Albuterol [Proventil Neb Soln] 1 ampule INH QID PRN 03/27/18 [History] Aspirin 81 mg PO DAILY 03/27/18 [History] Cholecalciferol (Vitamin D3) [Vitamin D3] 3,000 unit PO DAILY 03/27/18 [History] ClonazePAM [KlonoPIN] 0.5 mg PO BID 03/27/18 [History] Codeine/Promethazine [Phenergan with Codeine] 5 - 10 ml PO Q6HR PRN #240 ml 02/07 [Rx] Doxycycline [Doxycycline Hyclate] 100 mg PO BID 03/27/18 [History] Fluticasone Propionate [Flonase] 1 spray NASBOTH BID 03/27/18 [History] Hydrocodone/Acetaminophen [Hydrocodon-Acetaminophn 10-325] 1 tab PO Q6H PRN 02/07 [History] Loratadine/Pseudoephedrine [Loratadine-D 12HR] 1 tab PO DAILY PRN 03/27/18 [ History] Jj B-Stress. 3 tab PO DAILY 03/27/18 [History] predniSONE [Prednisone] 20 mg PO DAILY 03/27/18 [History] Past Medical History Other HEENT History: wears glasses Respiratory History: Reports: SOB Neurological History: Reports: Headaches, Chronic Psychiatric History: Reports: Anxiety, Depression - Past Surgical History HEENT Surgical History: Reports: Cataract Surgery, Tonsillectomy GI Surgical History: Reports: Appendectomy, Cholecystectomy, Colonoscopy Female Surgical History: Reports: Hysterectomy Neurological Surgical History: Reports: Lumbar Spine Social & Family History - Caffeine Use Caffeine Use: Reports: Coffee ED ROS GENERAL - Review of Systems Review Of Systems: See Below Constitutional: Reports: No Symptoms HEENT: Reports: No Symptoms Respiratory: Reports: No Symptoms Cardiovascular: Reports: Chest Pain Endocrine: Reports: No Symptoms GI/Abdominal: Reports: No Symptoms : Reports: No Symptoms Musculoskeletal: Reports: Neck Pain (and right arm pain) ED EXAM, GENERAL - Physical Exam Exam: See Below Exam Limited By: No Limitations General Appearance: Alert, No Apparent Distress Ears: Normal External Exam Nose: Normal Inspection Head: Atraumatic, Normocephalic Neck: Other (Pain upon palpation to the right lateral neck and that shoots down her right arm and it is made worse by axial loading her head and tilting her head to the right side) Respiratory/Chest: No Respiratory Distress, Lungs Clear, Normal Breath Sounds Cardiovascular: Regular Rate, Rhythm, No Edema, No Murmur GI/Abdominal: Soft, Non-Tender, No Organomegaly, No Mass Back Exam: Normal Inspection Extremities: Normal Inspection Neurological: Alert, Oriented, No Motor/Sensory Deficits EKG INTERPRETATION EKG Date: 12/13/18 Time: 17:17 Rhythm: NSR Rate (Beats/Min): 108 [place]: Normal P-Wave: Present QRS: Normal ST-T: Normal QT: Normal Course - Vital Signs Last Recorded V/S: Last Vital Signs Temp 98.2 F 12/13/18 17:16 Pulse 110 H 12/13/18 17:16 Resp 12 12/13/18 17:16 BP 138/85 12/13/18 17:16 Pulse Ox 97 12/13/18 17:16 - Orders/Labs/Meds Orders: Active Orders 24 hr Category Date Time Status Cardiac Monitoring [RC] . DIRECTED Care 12/13/18 17:32 Active EKG Documentation Completion [RC] STAT Care 12/13/18 17:34 Active Oxygen Therapy [RC] PRN Care 12/13/18 17:33 Active Peripheral IV Care [RC] . DIRECTED Care 12/13/18 17:34 Active Chest 1V Frontal [CR] Stat Exams 12/13/18 17:34 Taken HYDROmorphone [Dilaudid] Med 12/13/18 19:15 Once 0.5 mg IVPUSH ONETIME ONE Sodium Chloride 0.9% [Saline Flush] Med 12/13/18 17:32 Active 10 ml FLUSH ASDIRECTED PRN diazePAM [Valium] Med 12/13/18 19:15 Once 5 mg PO ONETIME ONE Peripheral IV Insertion Adult [OM.PC] Stat Oth 12/13/18 17:32 Ordered Medication Orders Hydromorphone HCl (Dilaudid) 0.5 mg IVPUSH ONETIME ONE Stop: 12/13/18 19:16 Sodium Chloride (Saline Flush) 10 ml FLUSH ASDIRECTED PRN PRN Reason: Keep Vein Open Last Admin: 12/13/18 17:49 Dose: 10 ml Labs: Laboratory Tests 12/13/18 12/13/18 12/13/18 Range/Units 17:25 17:25 17:25 WBC 6.90 (3.98-10.04) K/mm3 RBC 4.00 (3.98-5.22) M/mm3 Hgb 12.7 (11.2-15.7) gm/L Hct 38.9 (34.1-44.9) % MCV 97.3 H (79.4-94.8) fl MCH 31.8 (25.6-32.2) pg MCHC 32.6 (32.2-35.5) g/dl RDW Std Deviation 47.0 H (36.4-46.3) fL Plt Count 266 (182-369) K/mm3 MPV 9.1 L (9.4-12.3) fl Neut % (Auto) 42.9 (34.0-71.1) % Lymph % (Auto) 43.0 (19.3-51.7) % [place] % (Auto) 11.7 (4.7-12.5) % Eos % (Auto) 2.0 (0.7-5.8) Baso % (Auto) 0.3 (0.1-1.2) % Neut # (Auto) 2.95 (1.56-6.13) K/mm3 Lymph # (Auto) 2.97 (1.18-3.74) K/mm3 [place] # (Auto) 0.81 H (0.24-0.36) K/mm3 Eos # (Auto) 0.14 (0.04-0.36) K/mm3 Baso # (Auto) 0.02 (0.01-0.08) K/mm3 D-Dimer, Quantitative 0.33 (0.19-0.50) mg/L Sodium 137 (136-145) mEq/L Potassium 3.5 (3.5-5.1) mEq/L Chloride 103 (98-107) mEq/L Carbon Dioxide 25 (21-32) mEq/L Anion Gap 12.5 (5-15) BUN 19 H (7-18) mg/dL Creatinine 0.9 (0.55-1.02) mg/dL Est Cr Clr Drug Dosing 53.67 mL/min Estimated GFR (MDRD) > 60 (>60) mL/min BUN/Creatinine Ratio 21.1 H (14-18) Glucose 90 (83-115) mg/dL Calcium 9.2 (8.5-10.1) mg/dL Total Bilirubin 0.2 (0.2-1.0) mg/dL AST 40 H (15-37) U/L ALT 84 H (14-59) U/L Alkaline Phosphatase 118 H (46-116) U/L Troponin I < 0.017 (0.00-0.056) ng/mL Total Protein 6.9 (6.4-8.2) g/dl Albumin 4.0 (3.4-5.0) g/dl Globulin 2.9 gm/dL Albumin/Globulin Ratio 1.4 (1-2) TSH 3rd Generation (0.358-3.74) uIU/mL Ethyl Alcohol (0.00) gm% 12/13/18 Range/Units 17:25 WBC (3.98-10.04) K/mm3 RBC (3.98-5.22) M/mm3 Hgb (11.2-15.7) gm/L Hct (34.1-44.9) % MCV (79.4-94.8) fl MCH (25.6-32.2) pg MCHC (32.2-35.5) g/dl RDW Std Deviation (36.4-46.3) fL Plt Count (182-369) K/mm3 MPV (9.4-12.3) fl Neut % (Auto) (34.0-71.1) % Lymph % (Auto) (19.3-51.7) % [place] % (Auto) (4.7-12.5) % Eos % (Auto) (0.7-5.8) Baso % (Auto) (0.1-1.2) % Neut # (Auto) (1.56-6.13) K/mm3 Lymph # (Auto) (1.18-3.74) K/mm3 [place] # (Auto) (0.24-0.36) K/mm3 Eos # (Auto) (0.04-0.36) K/mm3 Baso # (Auto) (0.01-0.08) K/mm3 D-Dimer, Quantitative (0.19-0.50) mg/L Sodium (136-145) mEq/L Potassium (3.5-5.1) mEq/L Chloride (98-107) mEq/L Carbon Dioxide (21-32) mEq/L Anion Gap (5-15) BUN (7-18) mg/dL Creatinine (0.55-1.02) mg/dL Est Cr Clr Drug Dosing mL/min Estimated GFR (MDRD) (>60) mL/min BUN/Creatinine Ratio (14-18) Glucose (83-115) mg/dL Calcium (8.5-10.1) mg/dL Total Bilirubin (0.2-1.0) mg/dL AST (15-37) U/L ALT (14-59) U/L Alkaline Phosphatase (46-116) U/L Troponin I (0.00-0.056) ng/mL Total Protein (6.4-8.2) g/dl Albumin (3.4-5.0) g/dl Globulin gm/dL Albumin/Globulin Ratio (1-2) TSH 3rd Generation 2.313 (0.358-3.74) uIU/mL Ethyl Alcohol 0.00 (0.00) gm% Meds: Medications Generic Name Dose Route Start Last Admin Trade Name Freq PRN Reason Stop Dose Admin Hydromorphone HCl 0.5 mg 12/13/18 19:15 Dilaudid IVPUSH 12/13/18 19:16 ONETIME ONE Sodium Chloride 10 ml 12/13/18 17:32 12/13/18 17:49 Saline Flush FLUSH 10 ml ASDIRECTED PRN Administration Keep Vein Open Discontinued Medications Generic Name Dose Route Start Last Admin Trade Name Freq PRN Reason Stop Dose Admin Hydromorphone HCl 0.5 mg 12/13/18 17:34 12/13/18 17:48 Dilaudid IVPUSH 12/13/18 17:35 0.5 mg ONETIME ONE Administration - Re-Assessments/Exams Free Text/Narrative Re-Assessment/Exam: 12/13/18 18:56 I ordered an IV saline lock, EKG, CXR, labs and dilaudid 0.5mg IV. Her EKG shows a NSR with no acute changes. 12/13/18 18:58 Her CBC looks good. Her AST was 40. Her ALT was 84. Her alk phos was elevated at 118. Her troponin is negative. Her TSH was normal. Her D-dimer was normal. Her ETOH is 0. Her BP is even better now at 129/76. She is feeling better. 12/13/18 19:16 She still has pain and she is anxious so I ordered dilaudid 0.5mg IV and valium 5mg by mouth. Departure - Departure Time of Disposition: 19:20 Disposition: Home, Self-Care 01 Condition: Good Clinical Impression: Cervical radiculopathy Chest pain Qualifiers: Chest pain type: unspecified Qualified Code(s): R07.9 - Chest pain, unspecified Referrals: Sanjeev Lai MD [Primary Care Provider] - Forms: ED Department Discharge Additional Instructions: Go home and rest and follow up with Dr Lai in a few days. Please return if you are worse. - My Orders Last 24 Hours: My Active Orders 12/13/18 17:32 Cardiac Monitoring [RC] . DIRECTED Sodium Chloride 0.9% [Saline Flush] 10 ml FLUSH ASDIRECTED PRN Peripheral IV Insertion Adult [OM.PC] Stat 12/13/18 17:33 Oxygen Therapy [RC] PRN 12/13/18 17:34 EKG Documentation Completion [RC] STAT Peripheral IV Care [RC] . DIRECTED Chest 1V Frontal [CR] Stat 12/13/18 19:15 HYDROmorphone [Dilaudid] 0.5 mg IVPUSH ONETIME ONE diazePAM [Valium] 5 mg PO ONETIME ONE - Assessment/Plan Last 24 Hours: My Active Orders 12/13/18 17:32 Cardiac Monitoring [RC] . DIRECTED Sodium Chloride 0.9% [Saline Flush] 10 ml FLUSH ASDIRECTED PRN Peripheral IV Insertion Adult [OM.PC] Stat 12/13/18 17:33 Oxygen Therapy [RC] PRN 12/13/18 17:34 EKG Documentation Completion [RC] STAT Peripheral IV Care [RC] . DIRECTED Chest 1V Frontal [CR] Stat 12/13/18 19:15 HYDROmorphone [Dilaudid] 0.5 mg IVPUSH ONETIME ONE diazePAM [Valium] 5 mg PO ONETIME ONE
[2018-12-13] MEDS ORDERED: Diazepam 5 MG Tab PO ONE (19:15)
--- NOTE | 2018-12-14 10:29 | CR ---
Chest: Portable view of the chest was obtained. Comparison: Prior chest CT of 03/27/18 and chest x-ray of 01/13/18.. Findings: Heart size is normal. Slight tortuosity of the thoracic aorta is seen. Lungs are clear no acute parenchymal change. Bony structures are grossly intact. Impression: 1. Nothing acute is seen on portable chest x-ray. Diagnostic code #2
== END 2018-12-13 19:32 | disposition home or self-care (01) ==
LOC: JD.ED 17:07
DX: M54.12 Radiculopathy, cervical region (principal); R07.9 Chest pain, unspecified; F41.9 Anxiety disorder, unspecified; F32.9 Major depressive disorder, single episode, unspecified; Z88.0 Allergy status to penicillin; Z88.1 Allergy status to other antibiotic agents; Z79.899 Other long term (current) drug therapy
CPT/HCPCS: 36415; 71045; 80053; 84443; 84484; 85025; 85379; 93005; 96374; 96376; 99285; A9270; G0480; J1170; 93010; 99284

== ENCOUNTER 2021-02-24 12:13 | Emergency (ER) | payer MEDICARE, BC ==
[2021-02-24] MEDS ORDERED: Albuterol/Ipratropium 3.0-0.5 MG/3 ML Neb Soln NEB ONE (12:46)
[2021-02-24] MEDS ORDERED: Sodium Chloride 0.9% 10 ML Syringe FLUSH PRN (12:46)
[2021-02-24] MEDS ORDERED: Aspirin 81 MG Tab.Chew PO ONE (12:54)
[2021-02-24] MEDS ORDERED: LORazepam 2 MG/ML SDV IVPUSH ONE (12:54)
[2021-02-24] MEDS ORDERED: HYDROmorphone 0.5 MG/0.5 ML Syringe IVPUSH ONE (13:49)
--- NOTE | 2021-02-24 14:44 | EDM.PDOC ---
ED HPI GENERAL MEDICAL PROBLEM - General Chief Complaint: Chest Pain Stated Complaint: CHEST PAIN/SOB Time Seen by Provider: 02/24/21 12:21 Source of Information: Reports: Patient, RN Notes Reviewed - History of Present Illness INITIAL COMMENTS - FREE TEXT/NARRATIVE: 75 yr old female has had chest pressure, dyspnea for the past 3 days. Has discomfort L ant. chest, does not radiate. Chronic cough, worse the past few days. No fever or chills. she does continue to smoke but not as much as she used to. No known hx of CAD. Has had both covid vaccine doses months ago. Left Chest Pain Score (Numeric/FACES): 7 Left Shoulder Pain Score (Numeric/FACES): 7 - Related Data Allergies Allergy/AdvReac Type Severity Reaction Status Date / Time Penicillins Allergy Difficulty Verified 12/13/18 17:16 Breathing clarithromycin AdvReac Stomach Verified 12/13/18 17:16 Upset erythromycin base AdvReac Stomach Verified 12/13/18 17:16 Upset Home Meds: Home Meds Albuterol Sulfate [Albuterol Sulfate HFA] 2 puff INH Q4H PRN 02/24/21 [History] Cyclobenzaprine [Flexeril] 10 mg PO TID PRN 02/24/21 [History] FLUoxetine HCl [Prozac] 60 mg PO DAILY 02/24/21 [History] Fluticasone/Umeclidin/Vilanter [Trelegy Ellipta 100-62.5-25] 1 puff INH DAILY 02/24/21 [History] Gabapentin [Neurontin] 900 mg PO DAILY 02/24/21 [History] Hydrocodone/Acetaminophen [Hydrocodone-Acetamin 10-325 mg] 1 tab PO Q6H PRN 02/24/21 [History] Levothyroxine [Synthroid] 50 mcg PO DAILY 02/24/21 [History] Losartan [Cozaar] 25 mg PO DAILY 02/24/21 [History] Metoprolol Tartrate [Lopressor] 25 mg PO Q12HR #30 tab 02/24/21 [Rx] clonazePAM [Clonazepam] 0.5 mg PO BID 02/24/21 [History] predniSONE [Prednisone] 20 mg PO Q12HR #10 tablet 02/24/21 [Rx] traZODone HCl [Trazodone HCl] 200 mg PO BEDTIME 02/24/21 [History] Past Medical History Other HEENT History: wears glasses Cardiovascular History: Reports: Hypertension Respiratory History: Reports: SOB Neurological History: Reports: Headaches, Chronic Psychiatric History: Reports: Anxiety, Depression - Past Surgical History HEENT Surgical History: Reports: Cataract Surgery, Tonsillectomy GI Surgical History: Reports: Appendectomy, Cholecystectomy, Colonoscopy, Other (See Below) Other GI Surgeries/Procedures: fatty liver Female Surgical History: Reports: Hysterectomy Neurological Surgical History: Reports: Lumbar Spine Social & Family History - Tobacco Use Tobacco Use Status *Q: Current Every Day Tobacco User Years of Tobacco use: 40 Packs/Tins Daily: 0.5 - Caffeine Use Caffeine Use: Reports: Coffee - Recreational Drug Use Recreational Drug Use: No ED ROS GENERAL - Review of Systems Review Of Systems: See Below Constitutional: Denies: Fever, Chills, Diaphoresis HEENT: Reports: No Symptoms Respiratory: Reports: Shortness of Breath, Cough, Sputum (occasional). Denies: Pleuritic Chest Pain Cardiovascular: Reports: Chest Pain (R sided) GI/Abdominal: Denies: Abdominal Pain, Nausea, Vomiting Musculoskeletal: Denies: Shoulder Pain, Back Pain Skin: Reports: No Symptoms Neurological: Reports: No Symptoms ED EXAM, GENERAL - Physical Exam Exam: See Below General Appearance: Alert, Anxious, Mild Distress Eye Exam: Bilateral Eye: PERRL Throat/Mouth: Normal Inspection Head: Atraumatic. No: Facial Swelling Neck: Supple, Other (No JVD) Respiratory/Chest: No Respiratory Distress, Lungs Clear, Normal Breath Sounds. No: Rales, Rhonchi, Wheezing Cardiovascular: Tachycardia GI/Abdominal: Soft, Non-Tender. No: Guarding Back Exam: No: CVA Tenderness (L), CVA Tenderness (R) Extremities: Normal Inspection. No: Pedal Edema, Leg Pain, Increased Warmth, Redness Neurological: Alert, Oriented, No Motor/Sensory Deficits Skin Exam: Warm, Dry, Normal Color #1 Interpretation EKG Date: 02/24/21 Rhythm: Other (ectopic atrial tach or sinus tach, rate 121.) [place]: Normal P-Wave: Present QRS: Normal ST-T: Elevated (minimal st elev. inf leads) Course - Vital Signs Last Recorded V/S: Last Vital Signs Temp 96.2 F L 02/24/21 12:28 Pulse 111 H 06/04/21 15:07 Resp 20 02/24/21 12:28 BP 131/90 02/24/21 15:07 Pulse Ox 97 02/24/21 12:46 - Orders/Labs/Meds Orders: Active Orders 24 hr Category Date Time Status Peripheral IV Insertion Adult [OM.PC] Stat Oth 02/24/21 12:46 Ordered EKG 12 Lead [EK] Stat Ther 02/24/21 12:20 Ordered Labs: Laboratory Tests 02/24/21 02/24/21 02/24/21 Range/Units 12:22 12:22 12:22 WBC 6.23 (3.98-10.04) K/mm3 RBC 4.33 (3.98-5.22) M/mm3 Hgb 14.3 D (11.2-15.7) gm/dl Hct 43.1 (34.1-44.9) % MCV 99.5 H (79.4-94.8) fl MCH 33.0 H (25.6-32.2) pg MCHC 33.2 (32.2-35.5) g/dl RDW Std Deviation 48.2 H (36.4-46.3) fL Plt Count 237 (182-369) K/mm3 MPV 9.8 (9.4-12.3) fl Neut % (Auto) 49.9 (34.0-71.1) % Lymph % (Auto) 40.9 (19.3-51.7) % [place] % (Auto) 7.2 (4.7-12.5) % Eos % (Auto) 1.4 (0.7-5.8) Baso % (Auto) 0.3 (0.1-1.2) % Neut # (Auto) 3.10 (1.56-6.13) K/mm3 Lymph # (Auto) 2.55 (1.18-3.74) K/mm3 [place] # (Auto) 0.45 H (0.24-0.36) K/mm3 Eos # (Auto) 0.09 (0.04-0.36) K/mm3 Baso # (Auto) 0.02 (0.01-0.08) K/mm3 D-Dimer, Quantitative (0.19-0.50) mg/L Sodium 140 (136-145) mEq/L Potassium 3.7 (3.5-5.1) mEq/L Chloride 104 (98-107) mEq/L Carbon Dioxide 21 (21-32) mEq/L Anion Gap 18.7 H (5-15) BUN 20 H (7-18) mg/dL Creatinine 0.8 (0.55-1.02) mg/dL Est Cr Clr Drug Dosing 51.81 mL/min Estimated GFR (MDRD) > 60 (>60) mL/min BUN/Creatinine Ratio 25.0 H (14-18) Glucose 136 H (70-99) mg/dL Calcium 9.2 (8.5-10.1) mg/dL Total Bilirubin 0.3 (0.2-1.0) mg/dL AST [employer] ALT 97 H (14-59) U/L Alkaline Phosphatase 109 (46-116) U/L Troponin I < 0.017 (0.00-0.056) ng/mL C-Reactive Protein < 0.2 (<1.0) mg/dL NT-Pro-B Natriuret Pep 78 (0-125) pg/mL Total Protein 7.3 (6.4-8.2) g/dl Albumin 4.1 (3.4-5.0) g/dl Globulin 3.2 gm/dL Albumin/Globulin Ratio 1.3 (1-2) 02/24/21 Range/Units 13:05 WBC (3.98-10.04) K/mm3 RBC (3.98-5.22) M/mm3 Hgb (11.2-15.7) gm/dl Hct (34.1-44.9) % MCV (79.4-94.8) fl MCH (25.6-32.2) pg MCHC (32.2-35.5) g/dl RDW Std Deviation (36.4-46.3) fL Plt Count (182-369) K/mm3 MPV (9.4-12.3) fl Neut % (Auto) (34.0-71.1) % Lymph % (Auto) (19.3-51.7) % [place] % (Auto) (4.7-12.5) % Eos % (Auto) (0.7-5.8) Baso % (Auto) (0.1-1.2) % Neut # (Auto) (1.56-6.13) K/mm3 Lymph # (Auto) (1.18-3.74) K/mm3 [place] # (Auto) (0.24-0.36) K/mm3 Eos # (Auto) (0.04-0.36) K/mm3 Baso # (Auto) (0.01-0.08) K/mm3 D-Dimer, Quantitative 0.44 (0.19-0.50) mg/L Sodium (136-145) mEq/L Potassium (3.5-5.1) mEq/L Chloride (98-107) mEq/L Carbon Dioxide (21-32) mEq/L Anion Gap (5-15) BUN (7-18) mg/dL Creatinine (0.55-1.02) mg/dL Est Cr Clr Drug Dosing mL/min Estimated GFR (MDRD) (>60) mL/min BUN/Creatinine Ratio (14-18) Glucose (70-99) mg/dL Calcium (8.5-10.1) mg/dL Total Bilirubin (0.2-1.0) mg/dL AST ALT (14-59) U/L Alkaline Phosphatase (46-116) U/L Troponin I (0.00-0.056) ng/mL C-Reactive Protein (<1.0) mg/dL NT-Pro-B Natriuret Pep (0-125) pg/mL Total Protein (6.4-8.2) g/dl Albumin (3.4-5.0) g/dl Globulin gm/dL Albumin/Globulin Ratio (1-2) Meds: Medications Discontinued Medications Generic Name Dose Route Start Last Admin Trade Name Freq PRN Reason Stop Dose Admin Albuterol/Ipratropium 3 ml 02/24/21 12:46 02/24/21 13:03 Albuterol/Ipratropium 3.0-0.5 Mg/3 Ml Neb Soln NEB 02/24/21 12:47 3 ml ONETIME ONE Administration Aspirin 324 mg 02/24/21 12:54 02/24/21 13:12 Aspirin 81 Mg Tab.Chew PO 02/24/21 12:55 324 mg ONETIME ONE Administration Hydromorphone HCl 0.5 mg 02/24/21 13:49 02/24/21 14:10 Hydromorphone 0.5 Mg/0.5 Ml Syringe IVPUSH 02/24/21 13:50 0.5 mg ONETIME ONE Administration Lorazepam 1 mg 02/24/21 12:54 02/24/21 13:12 Lorazepam 2 Mg/Ml Sdv IVPUSH 02/24/21 12:55 1 mg ONETIME ONE Administration Methylprednisolone Sodium Succinate 125 mg 02/24/21 14:59 02/24/21 15:10 Methylprednisolone Sodium Succinate 125 Mg/2 Ml Sdv IVPUSH 02/24/21 15:00 125 mg ONETIME ONE Administration Metoprolol Tartrate 5 mg 02/24/21 14:59 02/24/21 15:07 Metoprolol Tartrate 5 Mg/5 Ml Sdv IVPUSH 02/24/21 15:00 5 mg ONETIME ONE Administration Sodium Chloride 10 ml 02/24/21 12:46 02/24/21 13:12 Sodium Chloride 0.9% 10 Ml Syringe FLUSH 10 ml ASDIRECTED PRN Administration Keep Vein Open - Re-Assessments/Exams Free Text/Narrative Re-Assessment/Exam: 02/24/21 15:38 troponin, BNP, D dimer, other labs normal. CXR is normal, no infiltrate or fluid. Heart still 118 when I checked on her a short time ago. Gave her 5 mg lopressor IV and rate came down to 100 and she feels better, less short of breath walking to and from and from bathroom. Will start her on prednisone 20 mg bid for 5 days, lopressor 25 mg bid. Discharge instr. as documented. Departure - Departure Time of Disposition: 15:41 Disposition: Home, Self-Care 01 Condition: Fair Clinical Impression: COPD exacerbation, Tachycardia Prescriptions: Metoprolol Tartrate [Lopressor] 25 mg PO Q12HR #30 tab predniSONE [Prednisone] 20 mg PO Q12HR #10 tablet Instructions: Chronic Obstructive Pulmonary Disease Exacerbation, [id number] Referrals: Sanjeev Lai MD [Primary Care Provider] - Forms: ED Department Discharge Additional Instructions: Rest. Prednisone 20 mg twice daily for 5 days. lopressor 25 mg twice daily. If your heart rate or BP drops too low, heart rate below 60 or BP less than 120 systolic decrease dosage of lopressor to 25 once daily (q AM). Prescriptions have been sent to [facility]. See Dr Lai next week in about 5 to 7 days, call for appointment. Return to ED as needed if symptoms worsening in any way. Sepsis Event Note (ED) - Evaluation Sepsis Screening Result: No Definite Risk - Focused Exam Vital Signs: Vital Signs Temp Pulse Pulse Resp BP BP Pulse Ox 02/24/21 15:07 111 H 131/90 02/24/21 12:46 02/24/21 12:28 96.2 F L 119 H 20 129/92 H 97 Pulse Ox 02/24/21 15:07 02/24/21 12:46 97 02/24/21 12:28 - My Orders Last 24 Hours: My Active Orders 02/24/21 12:20 EKG 12 Lead [EK] Stat 02/24/21 12:46 Peripheral IV Insertion Adult [OM.PC] Stat - Assessment/Plan Last 24 Hours: My Active Orders 02/24/21 12:20 EKG 12 Lead [EK] Stat 02/24/21 12:46 Peripheral IV Insertion Adult [OM.PC] Stat
[2021-02-24] MEDS ORDERED: methylPREDNISolone Sodium Succinate 125 MG/2 ML SDV IVPUSH ONE (14:59)
[2021-02-24] MEDS ORDERED: Metoprolol Tartrate 5 MG/5 ML SDV IVPUSH ONE (14:59)
--- NOTE | 2021-02-24 15:02 | CR ---
Chest: Portable view of the chest was obtained. Comparison: Prior chest x-ray on 12/13/18. Heart size is normal. Upper mediastinum is within normal limits for portable technique. Lungs are clear with no acute parenchymal change. Prior right shoulder surgery is noted. No acute osseous abnormality is appreciated. Impression: 1. Findings as noted above. 2. Nothing acute is seen. Diagnostic code #2
[2021-02-24 15:08] VITALS: BP 131/90; PULSE 111
== END 2021-02-24 16:00 | disposition home or self-care (01) ==
LOC: JD.ED 12:13
DX: J44.1 Chronic obstructive pulmonary disease with (acute) exacerbation (principal); R00.0 Tachycardia, unspecified; I10 Essential (primary) hypertension; Z88.1 Allergy status to other antibiotic agents; Z88.0 Allergy status to penicillin
CPT/HCPCS: 36415; 71045; 80053; 83880; 84484; 85025; 85379; 86140; 93005; 94640; 96374; 96375; 99285; A9270; J1170; J2060; J2930; J3490; 99284; J7620-GY

== ENCOUNTER 2021-02-27 12:11 | Emergency (ER) | payer MEDICARE, BC ==
--- NOTE | 2021-02-27 12:48 | EDM.PDOC ---
ED HPI GENERAL MEDICAL PROBLEM - General Chief Complaint: Chest Pain Stated Complaint: CHEST PAIN/LEG NUMBNESS Time Seen by Provider: 02/27/21 12:47 Source of Information: Reports: Patient History Limitations: Reports: No Limitations - History of Present Illness INITIAL COMMENTS - FREE TEXT/NARRATIVE: 75-year-old female presents to the ED for evaluation of rapid or irregular he artbeat. She was seen on February 24 through the ED and diagnosed with an ectopic atrial rhythm. She was started on metoprolol tartrate 25 mg twice daily which she has been taking. Unfortunately it has not slowed her heart down at all. Heart rate today was 125-135 at rest. Associated pressure in her abdomen with a fullness. She states she is gradually appreciating increasing weight gain and increasing abdominal girth for the last 6 to 9 months. She has pain at lateral aspects of both costal margins which is contributing to her dyspnea and sense that she cannot get a full deep breath. She was wondering if she actually has COVID-19 illness. She has had no fever chills but she has a nonproductive cough fatigue with decreased appetite. She has had both of her COVID-19 vaccinations she believes in October and November of this year. She states occasionally she will bring up some whitish frothy sputum. No hemoptysis. Complains of overwhelming fatigue. She does admit to being anxious. She has a history of elevated serum transaminases which they attributed to a fatty liver or steatosis of the liver. She is followed by gastroenterology in [place] for this. She denies any nausea and vomiting. She does have a issue with chronic constipation and usually has to take medication every third day to get her bowels to move. She does indicate that she has central chest pressure discomfort. She does experience occasional GERD. But no choking or reflux into her throat. Patient is also appreciated increasing peripheral neuropathy in both of her feet with numbness and tingling and inability to feel all of her toes in the her forefeet. She believes this is been gradually getting worse for about a year as well. Patient is on gabapentin 900 mg at bedtime. Onset: Unknown/Unsure (She has had symptoms of dyspnea and increasing abdominal girth for several months. Recently diagnosed with an ectopic atrial rhythm which on ECG is still apparent with a rapid heart rate up into the 130s. This is contributing to her anxiety.), Other (She has been appreciating an irregular rapid heart rate for the last month or more. Gradually increasing abdominal girth for the last 6 to 9 months.) Duration: Week(s):, Constant, Getting Worse Location: Reports: Chest (Sensation of dyspnea pressure in her central chest rating through to her back.), Abdomen (Increasing abdominal girth over the last 6 to 9 months. Close do not fit well. Increased weight with her ported weight gain of about 10 to 11 pounds over the last 6 to 9 months.) Quality: Reports: Ache, Pressure (Central chest and upper abdomen. Particularly evident at the bottoms of both costal margins.) Severity: Moderate (She feels like she cannot get a full deep breath.) Improves with: Reports: None Worsens with: Reports: Other (Worsens with exertion and lying down.) Context: Denies: Activity, Exercise, Lifting, Sick Contact, Trauma, Other Associated Symptoms: Reports: Chest Pain (White sputum.), Cough, cough w sputum, Headaches, Loss of Appetite, Malaise, Shortness of Breath, Weakness, Other (Chronic constipation issues.). 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 Her last dose was taken at 0300 hrs. this morning) - Related Data Allergies Allergy/AdvReac Type Severity Reaction Status Date / Time Penicillins Allergy Difficulty Verified 02/27/21 12:54 Breathing clarithromycin AdvReac Stomach Verified 02/27/21 12:54 Upset erythromycin base AdvReac Stomach Verified 02/27/21 12:54 Upset Home Meds: Home Meds Albuterol Sulfate [Albuterol Sulfate HFA] 2 puff INH Q4H PRN 02/24/21 [History] Cyclobenzaprine [Flexeril] 10 mg PO TID PRN 02/24/21 [History] FLUoxetine HCl [Prozac] 60 mg PO DAILY 02/24/21 [History] Fluticasone/Umeclidin/Vilanter [Trelegy Ellipta 100-62.5-25] 1 puff INH DAILY 02/24/21 [History] Gabapentin [Neurontin] 900 mg PO DAILY 02/24/21 [History] Hydrocodone/Acetaminophen [Hydrocodone-Acetamin 10-325 mg] 1 tab PO Q6H PRN 02/24/21 [History] Levothyroxine [Synthroid] 50 mcg PO DAILY 02/24/21 [History] Losartan [Cozaar] 25 mg PO DAILY 02/24/21 [History] Metoprolol Tartrate [Lopressor] 25 mg PO Q12HR #30 tab 02/24/21 [Rx] clonazePAM [Clonazepam] 0.5 mg PO BID 02/24/21 [History] predniSONE [Prednisone] 20 mg PO Q12HR #10 tablet 02/24/21 [Rx] traZODone HCl [Trazodone HCl] 200 mg PO BEDTIME 02/24/21 [History] Metoprolol Succinate 50 mg PO DAILY #30 tab.er.24h 02/27/21 [Rx] oxyCODONE HCl/Acetaminophen [Percocet 10-325 mg Tablet] 1 each PO Q4H PRN #60 tablet 02/27/21 [Rx] polyethylene glycoL 3350 [MiraLAX] 17 gm PO DAILY #1 container 02/27/21 [Rx] Past Medical History Other HEENT History: wears glasses Cardiovascular History: Reports: Hypertension Other Cardiovascular History: 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 Started on metoprolol tartrate 25 mg twice daily at that time. Respiratory History: Reports: SOB Musculoskeletal History: Reports: Back Pain, Chronic (Gradually worsening mid and low back pain over last several months. Patient has had previous lumbar spine fusion with removal of hardware. She has had bone grafting done to fuse her back. She has a neurostimulator in for the last 3 years. She can control the frequency with a remote control.), Osteoarthritis (Few joints in her hands and feet. Pain in her knees.) Neurological History: Reports: Headaches, Chronic, Neuropathy, Peripheral (Patient has peripheral neuropathy in both of her forefeet particularly she cannot feel her toes anymore. This has been gradually progressive over the last year. Initially improved with gabapentin. She is currently on 900 mg daily at bedtime) Psychiatric History: Reports: Anxiety, Depression Endocrine/Metabolic History: Reports: Obesity/BMI 30+, Osteopenia Other Endocrine/Metabolic History: Overwhelming fatigue. - Past Surgical History HEENT Surgical History: Reports: Cataract Surgery, Tonsillectomy GI Surgical History: Reports: Appendectomy, Cholecystectomy, Colonoscopy, Other (See Below) Other GI Surgeries/Procedures: fatty liver Female Surgical History: Reports: Hysterectomy Neurological Surgical History: Reports: Lumbar Spine (3 lower back surgeries initially with a discectomy second was a fusion with bone grafting from L3-L5. Subsequently she has had the hardware removed from her lumbar spine and a spinal cord nerve stimulator placed by neurosurgery 3 years ago.), Spinal Fusion Musculoskeletal Surgical History: Reports: Shoulder Replacement - History Comment History Comment: Chronic pain syndrome. Has never been diagnosed with fibromyalgia. Social & Family History - Caffeine Use Caffeine Use: Reports: Coffee - Living Situation & Occupation Living situation: Reports: Occupation: Retired ED ROS GENERAL - Review of Systems Review Of Systems: See Below Constitutional: Reports: Malaise, Weakness, Fatigue, Decreased Appetite, Weight Gain (She believes she has gained about 11 pounds over the last 6 to 7 months.). Denies: Fever, Chills HEENT: Reports: No Symptoms Respiratory: Reports: Shortness of Breath, Cough, Sputum (Occasional production of white frothy sputum). Denies: Wheezing, Pleuritic Chest Pain, Hemoptysis Cardiovascular: Reports: Chest Pain (Central chest pressure discomfort the last few days.), Blood Pressure Problem, Dyspnea on Exertion, Lightheadedness, Palpitations. Denies: Claudication (Chronic hypertension), Edema, Orthopnea Endocrine: Reports: Fatigue GI/Abdominal: Reports: Abdominal Pain (Pressure in her abdomen particular upper abdomen along the costal margins feels like her chest wall is being pushed out laterally and upwards.), Constipation (Chronic constipation.), Decreased Appetite : Reports: Frequency, Incontinence (Rare urgency incontinence.), Urgency Musculoskeletal: Reports: Back Pain, Joint Pain (The pain at times.) Skin: Reports: No Symptoms Neurological: Reports: Headache (Her headaches.), Numbness, Tingling (With lower extremities clinic. Patient has a history of peripheral neuropathy feet. This is gradually intensified over the last 6 to 12 months. No longer able to feel her toes. She does not have diabetes.), Difficulty Walking, Weakness (Due to not being able to feel her feet. Diffuse weakness particular felt in her lower extremities.). Denies: Confusion, Dizziness, Trouble Speaking, Change in Speech, Gait Disturbance Psychiatric: Reports: Anxiety, Depression. Denies: Hallucinations, Homicidal Ideation, Suicidal Ideation Hematologic/Lymphatic: Reports: No Symptoms Immunologic: Reports: No Symptoms ED EXAM, GENERAL - Physical Exam Exam: See Below Exam Limited By: No Limitations General Appearance: Alert, WD/WN, Anxious, Mild Distress, Other (Temperature is 36.8 degrees. Heart rate is elevated and monitor shows an ectopic atrial rhythm between 120 and 130/min. Respiratory is 18 with O2 sats of 97% on room air. BP mildly elevated 154 101.) Eye Exam: Bilateral Eye: Normal Inspection (No scleral icterus or blepharal pallor.), PERRL Throat/Mouth: Normal Inspection, Normal Lips, Normal Oropharynx Head: Atraumatic, Normocephalic Neck: Normal Inspection, Supple, Non-Tender, Full Range of Motion, Tender Lateral, Other (No JVD appreciated.). No: Carotid Bruit, Lymphadenopathy (L), Lymphadenopathy (R) Respiratory/Chest: No Respiratory Distress, No Accessory Muscle Use, Rales (Few fine rales in both lower lobes slightly worse on the right as compared to the left.). No: Lungs Clear, Normal Breath Sounds, Respiratory Distress, Rhonchi, Wheezing Cardiovascular: No Murmur, No Rub, Tachycardia (Ectopic atrial rhythm on the monitor at 120 to 130 bpm. 120 to 130/min with ectopic atrial rhythm.), Irregularly Irregular. No: Normal Peripheral Pulses, No Edema, No Gallop Peripheral Pulses: 2+: Carotid (L), Carotid (R), Posterior Tibial (L), Posterior Tibial (R), Dorsalis Pedis (L), Dorsalis Pedis (R) GI/Abdominal: Normal Bowel Sounds, Soft, No Organomegaly, No Abnormal Bruit, Pelvis Stable, Other (Increased abdominal girth. Firm to palpation. No obvious organomegaly or masses. Patient has had previous laparoscopic cholecystectomy and hysterectomy.). No: No Mass Back Exam: Full Range of Motion (Not able to evaluate.), Other (Well-healed midline lumbar back surgical scar.). No: CVA Tenderness (L), CVA Tenderness (R) Extremities: Pedal Edema (Trace pedal edema feet.) Neurological: Alert, Oriented, CN II-XII Intact, Normal Cognition, Normal Gait, Normal Reflexes Psychiatric: Normal Affect, Normal Mood Skin Exam: Warm, Dry, Intact, Normal Color, No Rash #1 Interpretation EKG Date: 02/27/21 Time: 12:39 Rhythm: Other (Ectopic atrial rhythm with rapid ventricular rate of 112 to 135/min.) Rate (Beats/Min): 112 [place]: Normal P-Wave: Enlarged (But inverted particular noted in the precordial leads V3 to V6 2, 3, aVF compliant with ectopic atrial rhythm. Left atrial hypertrophy.) QRS: Other (Mildly decreased voltage limb leads) ST-T: Other (Mild diffuse early repolarization pattern likely due to rate.) QT: Normal EKG Interpretation Comments: Abnormal ECG Course - Vital Signs Last Recorded V/S: Last Vital Signs Temp 36.8 C 02/27/21 12:30 Pulse 118 H 02/27/21 17:07 Resp 18 02/27/21 12:30 BP 120/87 02/27/21 17:07 Pulse Ox 97 02/27/21 12:30 - Orders/Labs/Meds Orders: Active Orders 24 hr Category Date Time Status Peripheral IV Insertion Adult [OM.PC] Stat Oth 02/27/21 13:18 Ordered EKG 12 Lead [EK] Stat Ther 02/27/21 12:55 Ordered Labs: Laboratory Tests 02/27/21 02/27/21 02/27/21 Range/Units 12:45 12:45 12:45 WBC 10.47 H (3.98-10.04) K/mm3 RBC 4.25 (3.98-5.22) M/mm3 Hgb 14.0 (11.2-15.7) gm/dl Hct 42.0 (34.1-44.9) % MCV 98.8 H (79.4-94.8) fl MCH 32.9 H (25.6-32.2) pg MCHC 33.3 (32.2-35.5) g/dl RDW Std Deviation 48.2 H (36.4-46.3) fL Plt Count 229 (182-369) K/mm3 MPV 9.5 (9.4-12.3) fl Neut % (Auto) 55.6 (34.0-71.1) % Lymph % (Auto) 35.4 (19.3-51.7) % [place] % (Auto) 8.4 (4.7-12.5) % Eos % (Auto) 0.1 L (0.7-5.8) Baso % (Auto) 0.2 (0.1-1.2) % Neut # (Auto) 5.82 (1.56-6.13) K/mm3 Lymph # (Auto) 3.71 (1.18-3.74) K/mm3 [place] # (Auto) 0.88 H (0.24-0.36) K/mm3 Eos # (Auto) 0.01 L (0.04-0.36) K/mm3 Baso # (Auto) 0.02 (0.01-0.08) K/mm3 Manual Slide Review Abnormal smear PT (9.7-12.0) SECONDS INR APTT (21.7-31.4) SECONDS D-Dimer, Quantitative 0.34 (0.19-0.50) mg/L Sodium 141 (136-145) mEq/L Potassium 4.5 (3.5-5.1) mEq/L Chloride 105 (98-107) mEq/L Carbon Dioxide 24 (21-32) mEq/L Anion Gap 16.5 H (5-15) BUN 19 H (7-18) mg/dL Creatinine 1.0 (0.55-1.02) mg/dL Est Cr Clr Drug Dosing TNP Estimated GFR (MDRD) 54 (>60) mL/min BUN/Creatinine Ratio 19.0 H (14-18) Glucose 131 H (70-99) mg/dL Calcium 8.9 (8.5-10.1) mg/dL Magnesium (1.8-2.4) mg/dL Total Bilirubin 0.3 (0.2-1.0) mg/dL AST 49 H (15-37) U/L ALT 115 H (14-59) U/L Alkaline Phosphatase 106 (46-116) U/L Troponin I < 0.017 (0.00-0.056) ng/mL C-Reactive Protein (<1.0) mg/dL NT-Pro-B Natriuret Pep (0-125) pg/mL Total Protein 7.0 (6.4-8.2) g/dl Albumin 4.0 (3.4-5.0) g/dl Globulin 3.0 gm/dL Albumin/Globulin Ratio 1.3 (1-2) Lipase (73-393) U/L Vitamin B12 (193-986) pg/ml TSH 3rd Generation (0.358-3.74) uIU/mL Urine Color (Yellow) Urine Appearance (Clear) Urine pH (5.0-8.0) Ur Specific [place] (1.005-1.030) Urine Protein (Negative) Urine Glucose (UA) (Negative) Urine Ketones (Negative) Urine Occult Blood (Negative) Urine Nitrite (Negative) Urine Bilirubin (Negative) Urine Urobilinogen (0.2-1.0) Ur Leukocyte Esterase (Negative) Urine RBC (0-5) /hpf Urine WBC (0-5) /hpf Ur Squamous Epith Cells (0-5) /hpf Urine Bacteria (FEW) /hpf Urine Mucus (FEW) /hpf SARS-CoV-2 RNA (MELODIE) (NEGATIVE) 02/27/21 02/27/21 02/27/21 Range/Units 12:45 12:45 12:45 WBC (3.98-10.04) K/mm3 RBC (3.98-5.22) M/mm3 Hgb (11.2-15.7) gm/dl Hct (34.1-44.9) % MCV (79.4-94.8) fl MCH (25.6-32.2) pg MCHC (32.2-35.5) g/dl RDW Std Deviation (36.4-46.3) fL Plt Count (182-369) K/mm3 MPV (9.4-12.3) fl Neut % (Auto) (34.0-71.1) % Lymph % (Auto) (19.3-51.7) % [place] % (Auto) (4.7-12.5) % Eos % (Auto) (0.7-5.8) Baso % (Auto) (0.1-1.2) % Neut # (Auto) (1.56-6.13) K/mm3 Lymph # (Auto) (1.18-3.74) K/mm3 [place] # (Auto) (0.24-0.36) K/mm3 Eos # (Auto) (0.04-0.36) K/mm3 Baso # (Auto) (0.01-0.08) K/mm3 Manual Slide Review PT (9.7-12.0) SECONDS INR APTT (21.7-31.4) SECONDS D-Dimer, Quantitative (0.19-0.50) mg/L Sodium (136-145) mEq/L Potassium (3.5-5.1) mEq/L Chloride (98-107) mEq/L Carbon Dioxide (21-32) mEq/L Anion Gap (5-15) BUN (7-18) mg/dL Creatinine (0.55-1.02) mg/dL Est Cr Clr Drug Dosing Estimated GFR (MDRD) (>60) mL/min BUN/Creatinine Ratio (14-18) Glucose (70-99) mg/dL Calcium (8.5-10.1) mg/dL Magnesium 1.9 (1.8-2.4) mg/dL Total Bilirubin (0.2-1.0) mg/dL AST (15-37) U/L ALT (14-59) U/L Alkaline Phosphatase (46-116) U/L Troponin I (0.00-0.056) ng/mL C-Reactive Protein <0.2 (<1.0) mg/dL NT-Pro-B Natriuret Pep 184 H (0-125) pg/mL Total Protein (6.4-8.2) g/dl Albumin (3.4-5.0) g/dl Globulin gm/dL Albumin/Globulin Ratio (1-2) Lipase 124 (73-393) U/L Vitamin B12 (193-986) pg/ml TSH 3rd Generation 1.100 (0.358-3.74) uIU/mL Urine Color (Yellow) Urine Appearance (Clear) Urine pH (5.0-8.0) Ur Specific [place] (1.005-1.030) Urine Protein (Negative) Urine Glucose (UA) (Negative) Urine Ketones (Negative) Urine Occult Blood (Negative) Urine Nitrite (Negative) Urine Bilirubin (Negative) Urine Urobilinogen (0.2-1.0) Ur Leukocyte Esterase (Negative) Urine RBC (0-5) /hpf Urine WBC (0-5) /hpf Ur Squamous Epith Cells (0-5) /hpf Urine Bacteria (FEW) /hpf Urine Mucus (FEW) /hpf SARS-CoV-2 RNA (MELODIE) (NEGATIVE) 02/27/21 02/27/21 02/27/21 Range/Units 12:45 13:02 13:19 WBC (3.98-10.04) K/mm3 RBC (3.98-5.22) M/mm3 Hgb (11.2-15.7) gm/dl Hct (34.1-44.9) % MCV (79.4-94.8) fl MCH (25.6-32.2) pg MCHC (32.2-35.5) g/dl RDW Std Deviation (36.4-46.3) fL Plt Count (182-369) K/mm3 MPV (9.4-12.3) fl Neut % (Auto) (34.0-71.1) % Lymph % (Auto) (19.3-51.7) % [place] % (Auto) (4.7-12.5) % Eos % (Auto) (0.7-5.8) Baso % (Auto) (0.1-1.2) % Neut # (Auto) (1.56-6.13) K/mm3 Lymph # (Auto) (1.18-3.74) K/mm3 [place] # (Auto) (0.24-0.36) K/mm3 Eos # (Auto) (0.04-0.36) K/mm3 Baso # (Auto) (0.01-0.08) K/mm3 Manual Slide Review PT 10.2 (9.7-12.0) SECONDS INR 0.95 APTT 22.5 (21.7-31.4) SECONDS D-Dimer, Quantitative (0.19-0.50) mg/L Sodium (136-145) mEq/L Potassium (3.5-5.1) mEq/L Chloride (98-107) mEq/L Carbon Dioxide (21-32) mEq/L Anion Gap (5-15) BUN (7-18) mg/dL Creatinine (0.55-1.02) mg/dL Est Cr Clr Drug Dosing Estimated GFR (MDRD) (>60) mL/min BUN/Creatinine Ratio (14-18) Glucose (70-99) mg/dL Calcium (8.5-10.1) mg/dL Magnesium (1.8-2.4) mg/dL Total Bilirubin (0.2-1.0) mg/dL AST (15-37) U/L ALT (14-59) U/L Alkaline Phosphatase (46-116) U/L Troponin I (0.00-0.056) ng/mL C-Reactive Protein (<1.0) mg/dL NT-Pro-B Natriuret Pep (0-125) pg/mL Total Protein (6.4-8.2) g/dl Albumin (3.4-5.0) g/dl Globulin gm/dL Albumin/Globulin Ratio (1-2) Lipase (73-393) U/L Vitamin B12 1342 H (193-986) pg/ml TSH 3rd Generation (0.358-3.74) uIU/mL Urine Color (Yellow) Urine Appearance (Clear) Urine pH (5.0-8.0) Ur Specific [place] (1.005-1.030) Urine Protein (Negative) Urine Glucose (UA) (Negative) Urine Ketones (Negative) Urine Occult Blood (Negative) Urine Nitrite (Negative) Urine Bilirubin (Negative) Urine Urobilinogen (0.2-1.0) Ur Leukocyte Esterase (Negative) Urine RBC (0-5) /hpf Urine WBC (0-5) /hpf Ur Squamous Epith Cells (0-5) /hpf Urine Bacteria (FEW) /hpf Urine Mucus (FEW) /hpf SARS-CoV-2 RNA (MELODIE) Negative (NEGATIVE) 02/27/21 Range/Units 16:33 WBC (3.98-10.04) K/mm3 RBC (3.98-5.22) M/mm3 Hgb (11.2-15.7) gm/dl Hct (34.1-44.9) % MCV (79.4-94.8) fl MCH (25.6-32.2) pg MCHC (32.2-35.5) g/dl RDW Std Deviation (36.4-46.3) fL Plt Count (182-369) K/mm3 MPV (9.4-12.3) fl Neut % (Auto) (34.0-71.1) % Lymph % (Auto) (19.3-51.7) % [place] % (Auto) (4.7-12.5) % Eos % (Auto) (0.7-5.8) Baso % (Auto) (0.1-1.2) % Neut # (Auto) (1.56-6.13) K/mm3 Lymph # (Auto) (1.18-3.74) K/mm3 [place] # (Auto) (0.24-0.36) K/mm3 Eos # (Auto) (0.04-0.36) K/mm3 Baso # (Auto) (0.01-0.08) K/mm3 Manual Slide Review PT (9.7-12.0) SECONDS INR APTT (21.7-31.4) SECONDS D-Dimer, Quantitative (0.19-0.50) mg/L Sodium (136-145) mEq/L Potassium (3.5-5.1) mEq/L Chloride (98-107) mEq/L Carbon Dioxide (21-32) mEq/L Anion Gap (5-15) BUN (7-18) mg/dL Creatinine (0.55-1.02) mg/dL Est Cr Clr Drug Dosing Estimated GFR (MDRD) (>60) mL/min BUN/Creatinine Ratio (14-18) Glucose (70-99) mg/dL Calcium (8.5-10.1) mg/dL Magnesium (1.8-2.4) mg/dL Total Bilirubin (0.2-1.0) mg/dL AST (15-37) U/L ALT (14-59) U/L Alkaline Phosphatase (46-116) U/L Troponin I (0.00-0.056) ng/mL C-Reactive Protein (<1.0) mg/dL NT-Pro-B Natriuret Pep (0-125) pg/mL Total Protein (6.4-8.2) g/dl Albumin (3.4-5.0) g/dl Globulin gm/dL Albumin/Globulin Ratio (1-2) Lipase (73-393) U/L Vitamin B12 (193-986) pg/ml TSH 3rd Generation (0.358-3.74) uIU/mL Urine Color Yellow (Yellow) Urine Appearance Clear (Clear) Urine pH 6.0 (5.0-8.0) Ur Specific [place] 1.015 (1.005-1.030) Urine Protein Negative (Negative) Urine Glucose (UA) Negative (Negative) Urine Ketones Negative (Negative) Urine Occult Blood Negative (Negative) Urine Nitrite Negative (Negative) Urine Bilirubin Negative (Negative) Urine Urobilinogen 0.2 (0.2-1.0) Ur Leukocyte Esterase Negative (Negative) Urine RBC 0-5 (0-5) /hpf Urine WBC 0-5 (0-5) /hpf Ur Squamous Epith Cells 0-5 (0-5) /hpf Urine Bacteria Moderate H (FEW) /hpf Urine Mucus Not seen (FEW) /hpf SARS-CoV-2 RNA (MELODIE) (NEGATIVE) Meds: Medications Discontinued Medications Generic Name Dose Route Start Last Admin Trade Name Freq PRN Reason Stop Dose Admin Diltiazem HCl 10 mg 02/27/21 14:12 02/27/21 14:19 Diltiazem 50 Mg/10 Ml Sdv IVPUSH 02/27/21 14:13 10 mg ONETIME ONE Administration Diltiazem HCl 10 mg 02/27/21 15:12 02/27/21 15:21 Diltiazem 50 Mg/10 Ml Sdv IVPUSH 02/27/21 15:13 10 mg ONETIME ONE Administration Furosemide 40 mg 02/27/21 13:23 02/27/21 13:30 Furosemide 40 Mg/4 Ml Vial IVPUSH 02/27/21 13:24 40 mg NOW ONE Administration Hydromorphone HCl 1 mg 02/27/21 13:23 02/27/21 13:31 Hydromorphone 1 Mg/Ml Syringe IVPUSH 02/27/21 13:24 1 mg ONETIME ONE Administration Hydromorphone HCl 1 mg 02/27/21 15:12 02/27/21 15:21 Hydromorphone 1 Mg/Ml Syringe IVPUSH 02/27/21 15:13 1 mg ONETIME ONE Administration Hydromorphone HCl 0.5 mg 02/27/21 16:30 02/27/21 17:49 Hydromorphone 0.5 Mg/0.5 Ml Syringe IVPUSH 02/27/21 16:31 Not Given ONETIME ONE Iopamidol 100 ml 02/27/21 15:18 02/27/21 15:38 Iopamidol 612 Mg/Ml 100 Ml Bottle IVPUSH 02/27/21 15:19 100 ml ONETIME ONE Administration Lorazepam 0.5 mg 02/27/21 14:13 02/27/21 14:26 Lorazepam 2 Mg/Ml Sdv IVPUSH 02/27/21 14:14 0.5 mg ONETIME ONE Administration Magnesium Citrate 296 ml 02/27/21 17:04 02/27/21 18:00 Magnesium Citrate Solution 296 Ml Bottle PO 02/27/21 17:05 296 ml ONETIME ONE Administration Metoclopramide HCl 7.5 mg 02/27/21 13:24 02/27/21 13:30 Metoclopramide 10 Mg/2 Ml Sdv IVPUSH 02/27/21 13:25 7.5 mg ONETIME ONE Administration Metoprolol Succinate 50 mg 02/27/21 16:29 02/27/21 17:07 Metoprolol Succinate 50 Mg Tab.Er PO 02/27/21 16:30 50 mg ONETIME ONE Administration Sodium Chloride 10 ml 02/27/21 13:18 02/27/21 15:38 Sodium Chloride 0.9% 10 Ml Syringe FLUSH 10 ml ASDIRECTED PRN Administration Keep Vein Open Sodium Chloride 10 ml 02/27/21 15:30 Sodium Chloride 0.9% 10 Ml Syringe FLUSH ASDIRECTED BLANCA - Radiology Interpretation Free Text/Narrative:: 75-year-old female attends the ED quite distraught. She is aware of her heart beating fast and irregular in her chest. Feels dyspnea with pressure at both sides of her lower costal margins laterally. Pressure radiates into her back. Difficulty lying flat to sleep the last several weeks. Nonproductive cough. Fatigue. Significant numbness and tingling in both of her feet combined with peripheral neuropathy the development over the last year. Recently diagnosed with steatosis of her liver which accounted for her mildly elevated transaminases. She is being followed by GI in [place]. Sheets abdominal girth and pressure in her abdomen is gradually increased over the last 6 to 9 months. She has a problem with chronic constipation. Has been taking Metamucil but can no longer get it down. She was seen in the ED on February [address] Perdue where ECG shows an ectopic atrial rhythm with a rapid rate in the 135's area. Today heart rate is in the 125 area. Again ECG does show an ectopic atrial rhythm. She was started on metoprolol tartrate 25 mg twice daily on February 24. So far it seems to be ineffectual in controlling the rate. Plan she will have ECG routine lab work performed including Covid screen since she has fatigue cough shortness of breath no fever or chills. She will be given Cardizem 10 mg IV for heart rate control and see what happens as she is on metoprolol with the last tablet taken at 0300 hrs. this morning. She claims that she has central chest pressure discomfort and on examination does have some crackles in both lung bases. Questioning whether she has mild congestive heart failure secondary to rapid heart rate. She will be given Lasix 40 mg IV. Dilaudid 1 mg IV for back pain and abdominal discomfort. Reglan 7.5 mg for nausea relief. - Re-Assessments/Exams Free Text/Narrative Re-Assessment/Exam: 02/27/21 14:22 . She had been given Ativan 0.5 mg IV for relief of anxiety with minimal improvement. Heart rate remains elevated at the 1 teens. Close to 120 on average. She will have repeat Cardizem 10 mg IV. white count is minimally elevated at 10.47. The differential reveals 55.6% neutrophils on the auto differential. Hemoglobin is 14.0 with hematocrit of 42.0. MCV is mildly elevated at 98.8.. Sodium 141 potassium of 4.5. Chloride is 105 with a bicarb of 24. Anion gap is 16.5. BUN is 19 with a creatinine of 1.0 and a GFR of 54. Glucose mildly elevated 131. Calcium is 8.9. Magnesium is 1.9. Bilirubin is 0.3 with an AST of 49 and ALT of 115. Alkaline phosphatase is 106. Troponin I is less than 0.017. C-reactive protein is less than 0.2. BNP is minimally elevated 184. Total protein 7.0 with an albumin fraction of 4.0. COVID-19 screen is negative. Chest x-ray done portably reveals the heart size to be normal. I felt there was a little bit of scarring in both lower lobes of the lungs slightly worse on the left as compared to the right. Suspect mild pulmonary fibrosis there is a tortuous thoracic aorta. Cardiac silhouette is otherwise normal. No pneumothorax no pleural effusion. No osseous abnormalities appreciated. 02/27/21 15:18 Labs do not reveal a significant elevation of BNP at 184. On reexamination she does have significant distention of the abdomen. It is hard without seeing the patient before whether this is normal but she states weight is going up and abdominal girth is gradually increased over the last 9 months. She does drink alcohol usually 2 glasses of wine daily or every other day. Never to excess to cause cirrhosis. Clinically she does not appear to have cirrhosis or ascites. Plan I am going to go ahead and CT her abdomen with IV contrast only. We will repeat Dilaudid 1 mg IV for back pain so that she can lay flat on the CT table. Cardizem 10 mg IV to try and achieve rate control of ectopic atrial rhythm. 02/27/21 15:56 CT of the abdomen pelvis has been performed with IV contrast only. Visualized portions of the lower lungs reveal minimal scarring seen within the right and left lung bases. No pleural effusions. Cardiac silhouette appears to be normal. Mildly patulous distal esophagus with minimal hiatal hernia. Liver is enlarged with no intraductal dilatation. It does reveal diffuse fatty infiltration. Gallbladder is surgically absent. Pancreas is normal. Common bile duct appears to be within normal limits postcholecystectom y. Spleen appears normal. The stomach appears normal. Right adrenal gland is poorly visualized. Left is normal. Both kidneys show some degree of atrophy without any other abnormalities appreciated. Ureters are normal. Bladder fills appropriately. Abdominal aorta shows mild atherosclerotic change with no aneurysm. No retroperitoneal adenopathy or mesenteric abnormalities are noted identified. Appendix is not identified. Mild diverticulosis is appreciated in the sigmoid and left descending colon with no findings of diverticulitis pelvis shows absence of the uterus with no signs of ovarian enlargement or cyst. Unclear if she had bilateral ovaries removed. Evidence of previous lumbar spine surgery with fusion at L3-L4. Pedicle screws appear to have been removed. There is retrolisthesis of L5 on lumbar 4 by about 15 to 20%. There is wide based disc bulge at the L5-S1 level. There is degenerative arthritic change at multiple levels in the lumbar spine. No compression fracture is evident. Patient has a spinal cord stimulator for the last 3 to use and wire is appreciated within the spinal canal on the lateral thoracic spine films. There is increased stool throughout most of the colon. No lymphadenopathy noted. Heart rate is down to 105/min. Of note B12 level came back actually elevated. TSH is 1.1 and therefore normal. 02/27/21 18:30: Patient put quite a bit of fuss about not being able to fill her prescription today for oxycodone tablets 10/325 mg. This is because [facility], called me and indicated that she had picked up a prescription for 30 tablets of hydrocodone 10/325 mg yesterday. I therefore advised them to put her oxycodone on hold until she was done with the hydrocodone tablets. Patient in fact refused to be discharged until I came to speak with her. Due to the busyness in the ED I never did get back into see the patient. I had spent a great deal of time with this patient over an hour and a quarter to explain the situation and come up with a comprehensive treatment plan to help with her ectopic atrial tachycardia and try a different medication for chronic pain relief as she has been on narcotics for pain relief for greater than 5 years. Departure - Departure Time of Disposition: 16:57 Disposition: Home, Self-Care 01 Reason for Transfer *Q: Other Condition: Fair Clinical Impression: Ectopic atrial rhythm Chronic lower back pain Qualifiers: Back pain laterality: unspecified Sciatica presence: without sciatica Qualified Code(s): M54.5 - Low back pain; G89.29 - Other chronic pain Prescriptions: Metoprolol Succinate 50 mg PO DAILY #30 tab.er.24h polyethylene glycoL 3350 [MiraLAX] 17 gm PO DAILY #1 container oxyCODONE HCl/Acetaminophen [Percocet 10-325 mg Tablet] 1 each PO Q4H PRN #60 tablet PRN Reason: Chronic low back pain Instructions: Chronic Back Pain, [id number] Referrals: Sanjeev Lai MD [Primary Care Provider] - Forms: ED Department Discharge Additional Instructions: Evaluation in the emergency room today in regards primarily to rapid heart rate due to ectopic atrial rhythm. This simply means that the pacemaker for your heart is coming from an alternative source than the regular sinoatrial node which sits in the right atrium of the heart. The rate is too fast going between 110 and 130/min. You were treated with doses of Cardizem in the emergency room to bring the rate under control and oral metoprolol succinate 50 mg in the ED. You will need to stop the metoprolol tartrate 25 mg tablets that you have been taking twice daily for the last 3 days and replace it with metoprolol succinate which is longer acting and only has to be taken once daily. You received your first tablet in the ED today. Next tablet is due tomorrow morning. I also did prescribe oxycodone in place of hydrocodone tablets 10/325 mg strength 1 tablet every 4 hours as needed for pain relief in your back. Both of these prescriptions have been sent to [facility]. You will need to discontinue hydrocodone tablets and replace with oxycodone tablets in an effort to try and give you further back pain relief. Evaluation of heart reveals no signs of heart attack or injury. No sign of significant fluid buildup in your lungs. I believe a lot of your shortness of breath is due to increased abdominal girth which you have indicated has occurred over the last 6 to 8 months. History suggest you have gained between 16 to 20 pounds in that timeframe. All other labs done through the emergency room were normal. CT of the abdomen was completed to make sure there was nothing awry in your abdomen and there was no signs of cancer or other abnormalities. The only thing identified was significant constipation which you already knew about. Part of this is caused by pain medication as they all cause constipation. It is my advice that you take magnesium citrate upon getting home today. Take all 10 ounces of the medication mixed with 6 ounces of juice of choice or Gatorade Powerade. This will take 1 to 3 hours to start to work and will usually make the bowels work 3 times with possible diarrhea. You need to start MiraLAX powder 17 g or 1 scoop daily to prevent constipation from occurring. It may be that you do not need your losartan medication for blood pressure after metoprolol succinate has been on board for a week. As you indicated you already have an appointment to follow-up with Dr. Lai next week. Your heart rate will gradually come down over the next several days as the metoprolol succinate starts to work better better usually on day 4-5 after taking it. Sepsis Event Note (ED) - Evaluation Sepsis Screening Result: No Definite Risk - Focused Exam Vital Signs: Vital Signs Temp Pulse Pulse Resp BP BP Pulse Ox 02/27/21 17:07 118 H 120/87 02/27/21 12:30 36.8 C 120 H 18 154/101 H 97 - My Orders Last 24 Hours: My Active Orders 02/27/21 12:55 EKG 12 Lead [EK] Stat 02/27/21 13:18 Peripheral IV Insertion Adult [OM.PC] Stat - Assessment/Plan Last 24 Hours: My Active Orders 02/27/21 12:55 EKG 12 Lead [EK] Stat 02/27/21 13:18 Peripheral IV Insertion Adult [OM.PC] Stat
[2021-02-27] MEDS ORDERED: HYDROmorphone 1 MG/ML Syringe IVPUSH ONE ×2 (13:23→15:12)
[2021-02-27] MEDS ORDERED: Furosemide 40 MG/4 ML VIAL IVPUSH ONE (13:23)
[2021-02-27] MEDS ORDERED: Metoclopramide 10 MG/2 ML SDV IVPUSH ONE (13:24)
[2021-02-27] MEDS: Sodium Chloride 0.9% 10 ML Syringe FLUSH PRN ×2 (13:32→15:38)
[2021-02-27] MEDS ORDERED: Diltiazem 50 MG/10 ML SDV IVPUSH ONE ×2 (14:12→15:12)
[2021-02-27] MEDS ORDERED: LORazepam 2 MG/ML SDV IVPUSH ONE (14:13)
[2021-02-27] MEDS ORDERED: Iopamidol 612 MG/ML 100 ML Bottle IVPUSH ONE (15:18)
[2021-02-27] MEDS ORDERED: Sodium Chloride 0.9% 10 ML Syringe FLUSH SCH (15:30)
--- NOTE | 2021-02-27 15:46 | CR ---
Chest: Portable view of the chest was obtained. Comparison: Prior chest x-ray of 02/24/21. Heart size and mediastinum are within normal limits. Lungs are clear with no acute parenchymal change. Prior shoulder surgery is again noted. No acute osseous abnormality is appreciated. Impression: 1. Nothing acute was seen on portable chest x-ray. 2. No change is seen from previous study. Diagnostic code #2
--- NOTE | 2021-02-27 16:03 | CT ---
CT abdomen and pelvis Technique: Multiple axial sections were obtained from above the dome of the diaphragm inferiorly through the pubic symphysis. Intravenous contrast was utilized. No oral contrast has been given. Delayed images were also obtained through the abdomen and pelvis. Comparison: Prior CT abdomen and pelvis study of 09/27/20. Findings: Minimal scarring is seen within the right and left lung bases. Diffuse fatty infiltration is seen throughout the liver. Surgical clips are noted from prior cholecystectomy. Spleen size is normal. No discrete adrenal abnormalities are seen. Kidneys show symmetric contrast enhancement. No hydronephrosis or mass is seen. Delayed images shows contrast within nondilated ureters as well as contrast within the bladder. Abdominal aorta shows atherosclerotic change with no aneurysm. No retroperitoneal adenopathy or mesenteric abnormalities are seen. No pelvic mass or adenopathy is seen. Appendix is not visualized. Mild increased stool is noted within the right and transverse colon. Mild diverticulosis is seen within the left colon and sigmoid region with no findings of diverticulitis. Bone window settings were reviewed which shows previous surgery at L3-4 and L4-5. There is partially visualized wire within the spinal canal partially seen within the thoracic spine. Impression: 1. Slight increased stool within the colon. 2. Diffuse fatty infiltration within the liver. 3. Other nonacute findings as noted above. No definite acute abnormality is appreciated. Diagnostic code #2
[2021-02-27] MEDS ORDERED: Metoprolol Succinate 50 MG Tab.ER PO ONE (16:29)
[2021-02-27] MEDS ORDERED: HYDROmorphone 0.5 MG/0.5 ML Syringe IVPUSH ONE (16:30)
[2021-02-27] MEDS ORDERED: Magnesium Citrate Solution 296 ML Bottle PO ONE (17:04)
[2021-02-27 17:07] VITALS: BP 120/87; PULSE 118
== END 2021-02-27 18:10 | disposition home or self-care (01) ==
LOC: JD.ED 12:11
DX: I49.8 Other specified cardiac arrhythmias (principal); G89.29 Other chronic pain; M54.5 Low back pain; Z20.822 Contact with and (suspected) exposure to COVID-19; Z88.0 Allergy status to penicillin; Z88.1 Allergy status to other antibiotic agents; R06.02 Shortness of breath
CPT/HCPCS: 36415; 71045; 74177; 80053; 81001; 82607; 83690; 83735; 83880; 84443; 84484; 85025; 85379; 85610; 85730; 86140; 93005; 96374; 96375; 96376; 99285; A9270; J1170; J1940; J2060; J2765; J3490; Q9967; U0002; 93010; 99284

== ENCOUNTER 2021-06-05 16:10 | Emergency (ER) | payer MEDICARE, BC ==
[2021-06-05 16:38] VITALS: BP 135/95; PULSE 112
[2021-06-05] MEDS ORDERED: Sodium Chloride 0.9% 10 ML Syringe FLUSH PRN (17:17)
[2021-06-05] MEDS ORDERED: HYDROmorphone 0.5 MG/0.5 ML Syringe IVPUSH ONE (17:22)
[2021-06-05] MEDS ORDERED: Ondansetron 4 MG/2 ML SDV IVPUSH ONE (17:22)
--- NOTE | 2021-06-05 18:16 | EDM.PDOC ---
ED HPI GENERAL MEDICAL PROBLEM - General Chief Complaint: Cardiovascular Problem Stated Complaint: dizzy fainted Time Seen by Provider: 06/05/21 17:04 Source of Information: Reports: Patient, RN Notes Reviewed History Limitations: Reports: No Limitations - History of Present Illness INITIAL COMMENTS - FREE TEXT/NARRATIVE: Patient is a 75-year-old female presenting to the emergency department for evaluation of headache and neck pain after experiencing a syncopal episode last evening. Patient reports that she has been having problems with recurrent syncopal episodes. Symptoms occur approximately 45 minutes after she takes her twice daily metoprolol and last for about 4 to 5 hours after each dose.. States that she feels dizzy and has fainted on a number of occasions. At one point she had stopped taking this medication and the symptoms resolved, however she followed up with her video technician, Dr. Delcid, last week and she wanted her to restart it. She reports that last evening about 45 minutes after taking her metoprolol she experienced syncopal event during which she hit her head on the wall. She is complaining of left-sided head pain as well as pain on the left side of her neck and left trapezius muscle. Reports that she has some numbness of her left leg which has been chronic for her. Her video technician feels that she likely has arterial insufficiency and she is scheduled for a ankle-brachial index. Patient reports that she recently wore a Holter monitor for 2 weeks and that there were some abnormalities visualized. She has had chronically elevated heart rate of 105-120 and has been referred to an long chain quiller tender. She denies any chest pain or shortness of breath at this time. Left Head Pain Score (Numeric/FACES): 6 - Related Data Allergies Allergy/AdvReac Type Severity Reaction Status Date / Time Penicillins Allergy Severe Difficulty Verified 06/05/21 16:38 Breathing clarithromycin AdvReac Severe Stomach Verified 06/05/21 16:38 Upset erythromycin base AdvReac Severe Stomach Verified 06/05/21 16:38 Upset Home Meds: Home Meds Albuterol Sulfate [Albuterol Sulfate HFA] 2 puff INH Q4H PRN 02/24/21 [History] Cyclobenzaprine [Flexeril] 10 mg PO TID PRN 02/24/21 [History] FLUoxetine HCl [Prozac] 60 mg PO DAILY 02/24/21 [History] Fluticasone/Umeclidin/Vilanter [Trelegy Ellipta 100-62.5-25] 1 puff INH DAILY 02/24/21 [History] Gabapentin [Neurontin] 900 mg PO DAILY 02/24/21 [History] Hydrocodone/Acetaminophen [Hydrocodone-Acetamin 10-325 mg] 1 tab PO Q6H PRN 02/24/21 [History] Levothyroxine [Synthroid] 50 mcg PO DAILY 02/24/21 [History] Losartan [Cozaar] 25 mg PO DAILY 02/24/21 [History] Metoprolol Tartrate [Lopressor] 25 mg PO Q12HR #30 tab 02/24/21 [Rx] clonazePAM [Clonazepam] 0.5 mg PO BID 02/24/21 [History] predniSONE [Prednisone] 20 mg PO Q12HR #10 tablet 02/24/21 [Rx] traZODone HCl [Trazodone HCl] 200 mg PO BEDTIME 02/24/21 [History] Metoprolol Succinate 50 mg PO DAILY #30 tab.er.24h 02/27/21 [Rx] oxyCODONE HCl/Acetaminophen [Percocet 10-325 mg Tablet] 1 each PO Q4H PRN #60 tablet 02/27/21 [Rx] polyethylene glycoL 3350 [MiraLAX] 17 gm PO DAILY #1 container 02/27/21 [Rx] Acetaminophen/oxyCODONE [Percocet 325-5 MG] 1 each PO Q8H PRN #9 tab 06/05/21 [Rx] Past Medical History Other HEENT History: wears glasses Cardiovascular History: Reports: Hypertension Other Cardiovascular History: 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 Started on metoprolol tartrate 25 mg twice daily at that time. Pt has "blockages in the heart." Respiratory History: Reports: SOB Musculoskeletal History: Reports: Back Pain, Chronic, Osteoarthritis Neurological History: Reports: Headaches, Chronic, Neuropathy, Peripheral Psychiatric History: Reports: Anxiety, Depression Endocrine/Metabolic History: Reports: Obesity/BMI 30+, Osteopenia Other Endocrine/Metabolic History: Overwhelming fatigue. - Past Surgical History HEENT Surgical History: Reports: Cataract Surgery, Tonsillectomy GI Surgical History: Reports: Appendectomy, Cholecystectomy, Colonoscopy, Other (See Below) Other GI Surgeries/Procedures: fatty liver Female Surgical History: Reports: Hysterectomy Neurological Surgical History: Reports: Lumbar Spine, Spinal Fusion Musculoskeletal Surgical History: Reports: Shoulder Replacement - History Comment History Comment: Chronic pain syndrome. Has never been diagnosed with f ibromyalgia. Social & Family History - Tobacco Use Tobacco Use Status *Q: Current Every Day Tobacco User Years of Tobacco use: 45 Packs/Tins Daily: 0.5 - Caffeine Use Caffeine Use: Reports: Coffee - Recreational Drug Use Recreational Drug Use: No - Living Situation & Occupation Living situation: Reports: Occupation: Retired ED ROS GENERAL - Review of Systems Review Of Systems: See Below Constitutional: Reports: No Symptoms HEENT: Reports: No Symptoms Respiratory: Reports: No Symptoms Cardiovascular: Reports: Lightheadedness, Syncope. Denies: Chest Pain, Dyspnea on Exertion, Palpitations Endocrine: Reports: No Symptoms GI/Abdominal: Reports: No Symptoms : Reports: No Symptoms Musculoskeletal: Reports: Neck Pain (left lateral), Shoulder Pain (left) Skin: Reports: No Symptoms Neurological: Reports: Dizziness, Headache Psychiatric: Reports: No Symptoms Hematologic/Lymphatic: Reports: No Symptoms Immunologic: Reports: No Symptoms ED EXAM, GENERAL - Physical Exam Exam: See Below Exam Limited By: No Limitations General Appearance: Alert, WD/WN, No Apparent Distress Eye Exam: Bilateral Eye: PERRL Ears: Normal External Exam, Normal Canal, Hearing Grossly Normal, Normal TMs Head: Atraumatic, Normocephalic Neck: Normal Inspection, Supple, Full Range of Motion, Tender Lateral (left) Respiratory/Chest: No Respiratory Distress, Lungs Clear, Normal Breath Sounds, No Accessory Muscle Use, Chest Non-Tender Cardiovascular: Normal Peripheral Pulses, Regular Rate, Rhythm, No Edema, No Gallop, No JVD, No Murmur, No Rub GI/Abdominal: Normal Bowel Sounds, Soft, Non-Tender, No Organomegaly, No Distention, No Abnormal Bruit, No Mass Back Exam: Normal Inspection, Full Range of Motion. No: Vertebral Tenderness Extremities: Other (Left shoulder tenderness. No deformity. Full active range of motion of the joint.) Neurological: Alert, Oriented, CN II-XII Intact, Normal Cognition, Normal Gait, Normal Reflexes, No Motor/Sensory Deficits Psychiatric: Normal Affect, Normal Mood Skin Exam: Warm, Dry, Intact, Normal Color, No Rash #1 Interpretation EKG Date: 06/05/21 Time: 17:29 Rhythm: Other (AV paced) Rate (Beats/Min): 101 EKG Interpretation Comments: No further analysis attempted EKG interpreted by Dr. Betina ARGUELLO Course - Vital Signs Last Recorded V/S: Last Vital Signs Temp 97.8 F 06/05/21 16:35 Pulse 112 H 06/05/21 16:35 Resp 16 06/05/21 16:35 BP 135/95 H 06/05/21 16:35 Pulse Ox 97 06/05/21 16:35 - Orders/Labs/Meds Labs: Laboratory Tests 06/05/21 06/05/21 Range/Units 18:15 18:15 WBC 5.68 (3.98-10.04) K/mm3 RBC 3.86 L (3.98-5.22) M/mm3 Hgb 12.5 D (11.2-15.7) gm/dl Hct 38.8 (34.1-44.9) % MCV 100.5 H (79.4-94.8) fl MCH 32.4 H (25.6-32.2) pg MCHC 32.2 (32.2-35.5) g/dl RDW Std Deviation 46.8 H (36.4-46.3) fL Plt Count 199 (182-369) K/mm3 MPV 9.4 (9.4-12.3) fl Neut % (Auto) 32.4 L (34.0-71.1) % Lymph % (Auto) 57.0 H (19.3-51.7) % [place] % (Auto) 8.8 (4.7-12.5) % Eos % (Auto) 1.4 (0.7-5.8) Baso % (Auto) 0.4 (0.1-1.2) % Neut # (Auto) 1.84 (1.56-6.13) K/mm3 Lymph # (Auto) 3.24 (1.18-3.74) K/mm3 [place] # (Auto) 0.50 H (0.24-0.36) K/mm3 Eos # (Auto) 0.08 (0.04-0.36) K/mm3 Baso # (Auto) 0.02 (0.01-0.08) K/mm3 Sodium 143 (136-145) mEq/L Potassium 3.9 (3.5-5.1) mEq/L Chloride 106 (98-107) mEq/L Carbon Dioxide 25 (21-32) mEq/L Anion Gap 15.9 H (5-15) BUN 16 (7-18) mg/dL Creatinine 0.9 (0.55-1.02) mg/dL Est Cr Clr Drug Dosing 46.05 mL/min Estimated GFR (MDRD) > 60 (>60) mL/min BUN/Creatinine Ratio 17.8 (14-18) Glucose 96 (70-99) mg/dL Calcium 8.4 L (8.5-10.1) mg/dL Total Bilirubin 0.2 (0.2-1.0) mg/dL AST 63 H (15-37) U/L ALT 133 H (14-59) U/L Alkaline Phosphatase 90 (46-116) U/L Troponin I < 0.017 (0.00-0.056) ng/mL Total Protein 6.4 (6.4-8.2) g/dl Albumin 3.7 (3.4-5.0) g/dl Globulin 2.7 gm/dL Albumin/Globulin Ratio 1.4 (1-2) Meds: Medications Discontinued Medications Generic Name Dose Route Start Last Admin Trade Name Freq PRN Reason Stop Dose Admin Hydromorphone HCl 0.5 mg 06/05/21 17:22 06/05/21 18:11 Hydromorphone 0.5 Mg/0.5 Ml Syringe IVPUSH 06/05/21 17:23 0.5 mg ONETIME ONE Administration Ketorolac Tromethamine 30 mg 06/05/21 19:01 06/05/21 19:11 Ketorolac 30 Mg/Ml Sdv IVPUSH 06/05/21 19:02 30 mg ONETIME ONE Administration Ondansetron HCl 4 mg 06/05/21 17:22 06/05/21 18:11 Ondansetron 4 Mg/2 Ml Sdv IVPUSH 06/05/21 17:23 4 mg ONETIME ONE Administration Sodium Chloride 10 ml 06/05/21 17:17 06/05/21 18:12 Sodium Chloride 0.9% 10 Ml Syringe FLUSH 10 ml ASDIRECTED PRN Administration Keep Vein Open - Re-Assessments/Exams Free Text/Narrative Re-Assessment/Exam: 06/05/21 19:22 Hematology is unremarkable. Troponin is undetectably low. EKG shows an atrial ventricular paced rhythm. CT of the head and C-spine show degenerative changes but no acute abnormalities. Patient is currently prescribed hydrocodone/Tylenol 10/325 mg 4 times daily. She is also on clonazepam 0.5 mg which she states she only takes at bedtime. I will send a short prescription for Percocet, however I have emphasized to the patient that she must not take the Percocet at the same time as the hydrocodone. She verbalized understanding of this. Recommend that she hold her metoprolol dose for this evening and contact her video technician in the morning as they were supposed to call her back this afternoon. She is in agreement with this plan. Discharge instructions as documented. Departure - Departure Time of Disposition: 19:26 Disposition: Home, Self-Care 01 Condition: Good ( ) Clinical Impression: Neck pain on left side Syncope Qualifiers: Syncope type: unspecified Qualified Code(s): R55 - Syncope and collapse Headache Qualifiers: Headache type: unspecified Headache chronicity pattern: unspecified pattern Intractability: not intractable Qualified Code(s): R51.9 - Headache, unspecified Prescriptions: Acetaminophen/oxyCODONE [Percocet 325-5 MG] 1 each PO Q8H PRN #9 tab PRN Reason: Pain Instructions: General Headache Without Cause, [id number], Syncope, [id number] Referrals: Sanjeev Lai MD [Primary Care Provider] - Baltazar Delcid MD [Ordering Only Provider] - Forms: ED Department Discharge Additional Instructions: You were seen in the emergency department today for headache and left-sided neck pain after having a syncopal episode last evening and hitting your head. Work- up included blood work, EKG of your heart, and a CT scan of your head and neck. Results of your work-up were found to be normal. While in the ER, you received pain and nausea medication. Prescription has been sent for Percocet for pain. Take these only as prescribed. Do not take these and hydrocodone at the same time. Recommend skipping your dose of metoprolol this evening and contacting your video technician in the morning to discuss today's occurrences. Return to ER for any new or worsening symptoms of concern. Sepsis Event Note (ED) - Evaluation Sepsis Screening Result: No Definite Risk
[2021-06-05] MEDS ORDERED: Ketorolac 30 MG/ML SDV IVPUSH ONE (19:01)
--- NOTE | 2021-06-05 19:10 | CT ---
CT cervical spine Technique: Multiple axial sections were obtained from above the C1 inferiorly to the top of T2. Reconstructed coronal and sagittal images were obtained. Comparison: Prior CT cervical spine study of 03/23/14. Findings: Mild disc space narrowing is noted at C4-5. Moderate disc space narrowing is noted at C5-6 and C6-7. Posterior osteophytes are noted which are most prominent at C5-6 and C6-7. Anterior osteophytes are noted at C4-5 through C6-7. Degenerative change is also noted between the dens and anterior arch of C1. Mild scattered degenerative change is noted throughout the apophyseal joints. Fairly severe left-sided neural foraminal stenosis is noted at C3-4. Moderate right-sided neural foraminal stenosis is noted at C3-4. Moderate right-sided neural foraminal stenosis is noted at C4-5 as well as mild left-sided neural foraminal stenosis. Severe bilateral neural foraminal stenosis is noted at C5-6. C6-7 level shows moderate bilateral neural foraminal stenosis. Other neural foramina are patent. Mild central canal stenosis is seen at C5-6 and C6-7. Diffuse degenerative change is seen throughout the uncovertebral joints. No fracture is appreciated. No abnormal subluxation is seen. Impression: 1. Diffuse degenerative change as noted above. 2. No acute fracture or abnormal subluxation is seen. Diagnostic code #2
--- NOTE | 2021-06-05 19:14 | CT ---
Head CT Technique: Multiple axial sections through the brain were obtained. Intravenous contrast was not utilized. Reconstructed coronal and sagittal images were obtained. Comparison: Prior head CT study of 01/13/18. Findings: Ventricles along with basal cisterns and sulci over the convexities are mildly prominent. Several small low density areas are seen within the basal ganglia either due to prominent perivascular spaces or old lacunar infarcts. No other abnormal parenchymal densities are seen. No evidence of intracranial hemorrhage is seen. No midline shift or mass-effect is seen. Bone window settings were reviewed. Visualized mastoid sinuses and paranasal sinuses show nothing acute. No acute calvarial abnormality is appreciated. Impression: 1. Mild senescent change as described above. 2. No acute intracranial abnormality is appreciated. Diagnostic code #2
== END 2021-06-05 19:43 | disposition home or self-care (01) ==
LOC: JD.ED 16:10
DX: R51.9 Headache, unspecified (principal); M54.2 Cervicalgia; R55 Syncope and collapse; I10 Essential (primary) hypertension; E66.9 Obesity, unspecified; Z88.0 Allergy status to penicillin; Z88.1 Allergy status to other antibiotic agents; Z68.33 Body mass index [BMI] 33.0-33.9, adult; Z72.0 Tobacco use
CPT/HCPCS: 36415; 70450; 72125; 80053; 84484; 85025; 93005; 96374; 96375; 99284; J1170; J1885; J2405; 93010

== ENCOUNTER 2021-08-29 09:12 | Emergency (ER) | payer MEDICARE, BC ==
[2021-08-29] MEDS: Sodium Chloride 0.9% 10 ML Syringe FLUSH PRN ×2 (09:25→10:48)
[2021-08-29] MEDS ORDERED: Aspirin 81 MG Tab.Chew PO ONE (09:33)
[2021-08-29] MEDS ORDERED: Sodium Chloride 0.9% 10 ML Syringe FLUSH PRN (09:35)
[2021-08-29] MEDS ORDERED: fentaNYL 100 MCG/2 ML SDV IVPUSH ONE (09:44)
[2021-08-29] MEDS ORDERED: Sodium Chloride 0.9% 1,000 ML IV SCH (09:45)
--- NOTE | 2021-08-29 09:51 | EDM.PDOC ---
ED HPI GENERAL MEDICAL PROBLEM - General Chief Complaint: Chest Pain Stated Complaint: CHEST PAIN\\TROUBLE BREATHING Time Seen by Provider: 08/29/21 09:34 Source of Information: Reports: Patient, Provider History Limitations: Reports: No Limitations - History of Present Illness INITIAL COMMENTS - FREE TEXT/NARRATIVE: 76-year-old female presents the emergency department today with complaints of centralized chest discomfort radiating into her left jaw and her left shoulder. Patient states this is an ongoing for approximately the past month. She reports that she did have a stent placed in her heart and was discharged from the hospital on 08/11/2021. Dr. Sorto placed the stent and the patient's transplant surgeon is . She states that stent having the stents placed she has had no change in her chest discomfort. She tells me that she was seen by her primary care provider yesterday, , and was informed that she has a blood clot in her lungs and needed to have a CT scan and was supposed to have it done yesterday here at the hospital however she states she did not feel well and elected to go home. I did phone her primary care provider, , and he states he did see her at the clinic yesterday. He states she is a very anxious woman. He states that her D-dimer was elevated at 0.61 and he did notify the patient that she should have a CT scan of the chest to rule out blood clot. He also states labs yesterday revealed a troponin of 0.017, proBNP of 83, creatinine of 0.97, GFR of 55, and states that the AST and ALT were elevated. He states that chest x-ray was essentially unremarkable. Patient does have a very strong odor of alcohol. When questioned whether or not she drinks she tells me occasionally she will have a glass of wine. Patient does have a significant smoking history of 50+ years approximately 1 pack/day. Patient continues to smoke. Primary provider is unsure of her drinking history however he again states that her liver functions are elevated so it is a possibility. Chest Pain Score (Numeric/FACES): 7 - Related Data Allergies Allergy/AdvReac Type Severity Reaction Status Date / Time Penicillins Allergy Severe Difficulty Verified 08/29/21 09:37 Breathing clarithromycin AdvReac Severe Stomach Verified 08/29/21 09:37 Upset erythromycin base AdvReac Severe Stomach Verified 08/29/21 09:37 Upset Home Meds: Home Meds Albuterol Sulfate [Albuterol Sulfate HFA] 2 puff INH Q4H PRN 02/24/21 [History] Cyclobenzaprine [Flexeril] 10 mg PO TID PRN 02/24/21 [History] FLUoxetine HCl [Prozac] 60 mg PO DAILY 02/24/21 [History] Fluticasone/Umeclidin/Vilanter [Trelegy Ellipta 100-62.5-25] 1 puff INH DAILY 02/24/21 [History] Gabapentin [Neurontin] 900 mg PO DAILY 02/24/21 [History] Hydrocodone/Acetaminophen [Hydrocodone-Acetamin 10-325 mg] 1 tab PO Q6H PRN 02/24/21 [History] Levothyroxine [Synthroid] 50 mcg PO DAILY 02/24/21 [History] Losartan [Cozaar] 25 mg PO DAILY 02/24/21 [History] Metoprolol Tartrate [Lopressor] 25 mg PO Q12HR #30 tab 02/24/21 [Rx] clonazePAM [Clonazepam] 0.5 mg PO BID 02/24/21 [History] predniSONE [Prednisone] 20 mg PO Q12HR #10 tablet 02/24/21 [Rx] traZODone HCl [Trazodone HCl] 200 mg PO BEDTIME 02/24/21 [History] Metoprolol Succinate 50 mg PO DAILY #30 tab.er.24h 02/27/21 [Rx] oxyCODONE HCl/Acetaminophen [Percocet 10-325 mg Tablet] 1 each PO Q4H PRN #60 tablet 02/27/21 [Rx] polyethylene glycoL 3350 [MiraLAX] 17 gm PO DAILY #1 container 02/27/21 [Rx] Acetaminophen/oxyCODONE [Percocet 325-5 MG] 1 each PO Q8H PRN #9 tab 06/05/21 [Rx] Past Medical History Other HEENT History: wears glasses Cardiovascular History: Reports: Hypertension Other Cardiovascular History: 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 Started on metoprolol tartrate 25 mg twice daily at that time. Pt has "blockages in the heart." Respiratory History: Reports: SOB Musculoskeletal History: Reports: Back Pain, Chronic, Osteoarthritis Neurological History: Reports: Headaches, Chronic, Neuropathy, Peripheral Psychiatric History: Reports: Anxiety, Depression Endocrine/Metabolic History: Reports: Obesity/BMI 30+, Osteopenia Other Endocrine/Metabolic History: Overwhelming fatigue. - Past Surgical History HEENT Surgical History: Reports: Cataract Surgery, Tonsillectomy GI Surgical History: Reports: Appendectomy, Cholecystectomy, Colonoscopy, Other (See Below) Other GI Surgeries/Procedures: fatty liver Female Surgical History: Reports: Hysterectomy Neurological Surgical History: Reports: Lumbar Spine, Spinal Fusion Musculoskeletal Surgical History: Reports: Shoulder Replacement - History Comment History Comment: Chronic pain syndrome. Has never been diagnosed with fibromyalgia. Social & Family History - Caffeine Use Caffeine Use: Reports: Coffee - Living Situation & Occupation Living situation: Reports: Occupation: Retired ED ROS GENERAL - Review of Systems Review Of Systems: Comprehensive ROS is negative, except as noted in HPI. ED EXAM, GENERAL - Physical Exam Exam: See Below Exam Limited By: No Limitations General Appearance: Alert, WD/WN, Anxious Ears: Normal External Exam, Hearing Grossly Normal Nose: Normal Inspection Throat/Mouth: Normal Inspection, Normal Lips, Normal Voice, No Airway Compromise Head: Atraumatic, Normocephalic Neck: Normal Inspection, Supple Respiratory/Chest: No Respiratory Distress, Lungs Clear, Normal Breath Sounds, No Accessory Muscle Use, Chest Non-Tender Cardiovascular: Normal Peripheral Pulses, Regular Rate, Rhythm, No Edema, No Murmur Peripheral Pulses: 2+: Radial (L), Radial (R) GI/Abdominal: Normal Bowel Sounds, Soft, Non-Tender, No Distention (Female) Exam: Deferred Rectal (Female) Exam: Deferred Back Exam: Normal Inspection Extremities: Normal Inspection, Normal Range of Motion, Non-Tender, Normal Capillary Refill Neurological: Alert, Oriented, Normal Cognition Psychiatric: Anxious Skin Exam: Warm, Dry, Intact, Normal Color, No Rash Lymphatic: No Adenopathy #1 Interpretation EKG Date: 08/29/21 Time: 09:35 Rhythm: NSR Rate (Beats/Min): 79 [place]: Normal P-Wave: Present QRS: Normal ST-T: Normal QT: Normal EKG Interpretation Comments: Per Dr. 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 Was discharged to home from the hospital on 08/11/2021. States she has had no change in her chest discomfort after having the stent placed. Does have a history of anxiety. Physical exam reveals a very anxious 76-year-old female. She states she is having central chest discomfort with radiation to her left jaw and shoulder. Pain is not reproducible. Physical exam is essentially unremarkable. Patient does have a strong odor of alcohol. Heart rate is 116, respiratory rate is 28 and O2 saturations are 98% on room air. Blood pressure 136/65. We will have nursing staff place a saline lock and draw full cardiac work-up to include a CBC, CMP, magnesium, C-reactive protein, troponin, D-dimer and BNP and a blood alcohol level. Will start normal saline at 150 cc/h as well as medicate the patient with 1 dose of fentanyl 50 mics. Last Recorded V/S: Last Vital Signs Temp 97.9 F 08/29/21 09:20 Pulse 116 H 08/29/21 09:20 Resp 28 H 08/29/21 09:20 BP 136/65 08/29/21 09:20 Pulse Ox 98 08/29/21 09:20 - Orders/Labs/Meds Orders: Active Orders 24 hr Category Date Time Status Cardiac Monitoring [RC] . DIRECTED Care 08/29/21 09:34 Active Communication Order [RC] ASDIRECTED Care 08/29/21 09:34 Active Communication Order [RC] ASDIRECTED Care 08/29/21 09:34 Active Oxygen Therapy [RC] ASDIRECTED Care 08/29/21 09:34 Active Peripheral IV Care [RC] . DIRECTED Care 08/29/21 09:34 Active Sodium Chloride 0.9% [Normal Saline] 1,000 ml Med 08/29/21 09:45 Active IV ASDIRECTED Sodium Chloride 0.9% [Normal Saline] 100 ml Med 08/29/21 11:00 Active IV ASDIRECTED Sodium Chloride 0.9% [Saline Flush] Med 08/29/21 09:33 Active 10 ml FLUSH ASDIRECTED PRN Sodium Chloride 0.9% [Saline Flush] Med 08/29/21 09:35 Active 10 ml FLUSH ASDIRECTED PRN Peripheral IV Insertion Adult [OM.PC] Stat Ot 08/29/21 09:34 Ordered Saline Lock Insert [OM.PC] Stat Ot 08/29/21 09:35 Ordered Medication Orders Sodium Chloride (Normal Saline) 1,000 mls @ 150 mls/hr IV ASDIRECTED [facility] Last Admin: 08/29/21 10:01 Dose: 150 mls/hr Documented by: CLIFTON Sodium Chloride (Normal Saline) 100 mls @ 75 mls/hr IV ASDIRECTED [facility] Last Admin: 08/29/21 10:49 Dose: 75 mls/hr Documented by: VIRGIE Sodium Chloride (Sodium Chloride 0.9% 10 Ml Syringe) 10 ml FLUSH ASDIRECTED PRN PRN Reason: Keep Vein Open Last Admin: 08/29/21 10:48 Dose: 10 ml Documented by: Admin: 08/29/21 09:25 Dose: 10 ml Documented by: CLIFTON Sodium Chloride (Sodium Chloride 0.9% 10 Ml Syringe) 10 ml FLUSH ASDIRECTED PRN PRN Reason: Keep Vein Open Labs: Laboratory Tests 08/29/21 08/29/21 08/29/21 Range/Units 09:25 09:25 09:25 WBC 6.54 (3.98-10.04) K/mm3 RBC 4.13 (3.98-5.22) M/mm3 Hgb 13.5 (11.2-15.7) gm/dl Hct 41.2 (34.1-44.9) % MCV 99.8 H (79.4-94.8) fl MCH 32.7 H (25.6-32.2) pg MCHC 32.8 (32.2-35.5) g/dl RDW Std Deviation 50.2 H (36.4-46.3) fL Plt Count 248 (182-369) K/mm3 MPV 9.4 (9.4-12.3) fl Neut % (Auto) 57.9 (34.0-71.1) % Lymph % (Auto) 31.2 (19.3-51.7) % [place] % (Auto) 8.1 (4.7-12.5) % Eos % (Auto) 1.8 (0.7-5.8) Baso % (Auto) 0.5 (0.1-1.2) % Neut # (Auto) 3.79 (1.56-6.13) K/mm3 Lymph # (Auto) 2.04 (1.18-3.74) K/mm3 [place] # (Auto) 0.53 H (0.24-0.36) K/mm3 Eos # (Auto) 0.12 (0.04-0.36) K/mm3 Baso # (Auto) 0.03 (0.01-0.08) K/mm3 PT 10.3 (9.7-12.0) SECONDS INR 0.93 D-Dimer, Quantitative 0.56 H (0.19-0.50) mg/L Sodium 143 (136-145) mEq/L Potassium 3.7 (3.5-5.1) mEq/L Chloride 105 (98-107) mEq/L Carbon Dioxide 23 (21-32) mEq/L Anion Gap 18.7 H (5-15) BUN 18 (7-18) mg/dL Creatinine 0.9 (0.55-1.02) mg/dL Est Cr Clr Drug Dosing 45.36 mL/min Estimated GFR (MDRD) > 60 (>60) mL/min BUN/Creatinine Ratio 20.0 H (14-18) Glucose 150 H (70-99) mg/dL Calcium 9.5 (8.5-10.1) mg/dL Magnesium 1.9 (1.8-2.4) mg/dL Total Bilirubin 0.3 (0.2-1.0) mg/dL AST 67 H (15-37) U/L ALT 154 H (14-59) U/L Alkaline Phosphatase 131 H (46-116) U/L Troponin I < 0.017 (0.00-0.056) ng/mL C-Reactive Protein < 0.2 (<1.0) mg/dL NT-Pro-B Natriuret Pep (0-125) pg/mL Total Protein 7.4 (6.4-8.2) g/dl Albumin 4.0 (3.4-5.0) g/dl Globulin 3.4 gm/dL Albumin/Globulin Ratio 1.2 (1-2) Ethyl Alcohol (0.00) gm% 08/29/21 08/29/21 Range/Units 09:25 09:25 WBC (3.98-10.04) K/mm3 RBC (3.98-5.22) M/mm3 Hgb (11.2-15.7) gm/dl Hct (34.1-44.9) % MCV (79.4-94.8) fl MCH (25.6-32.2) pg MCHC (32.2-35.5) g/dl RDW Std Deviation (36.4-46.3) fL Plt Count (182-369) K/mm3 MPV (9.4-12.3) fl Neut % (Auto) (34.0-71.1) % Lymph % (Auto) (19.3-51.7) % [place] % (Auto) (4.7-12.5) % Eos % (Auto) (0.7-5.8) Baso % (Auto) (0.1-1.2) % Neut # (Auto) (1.56-6.13) K/mm3 Lymph # (Auto) (1.18-3.74) K/mm3 [place] # (Auto) (0.24-0.36) K/mm3 Eos # (Auto) (0.04-0.36) K/mm3 Baso # (Auto) (0.01-0.08) K/mm3 PT (9.7-12.0) SECONDS INR D-Dimer, Quantitative (0.19-0.50) mg/L Sodium (136-145) mEq/L Potassium (3.5-5.1) mEq/L Chloride (98-107) mEq/L Carbon Dioxide (21-32) mEq/L Anion Gap (5-15) BUN (7-18) mg/dL Creatinine (0.55-1.02) mg/dL Est Cr Clr Drug Dosing mL/min Estimated GFR (MDRD) (>60) mL/min BUN/Creatinine Ratio (14-18) Glucose (70-99) mg/dL Calcium (8.5-10.1) mg/dL Magnesium (1.8-2.4) mg/dL Total Bilirubin (0.2-1.0) mg/dL AST (15-37) U/L ALT (14-59) U/L Alkaline Phosphatase (46-116) U/L Troponin I (0.00-0.056) ng/mL C-Reactive Protein (<1.0) mg/dL NT-Pro-B Natriuret Pep 244 H (0-125) pg/mL Total Protein (6.4-8.2) g/dl Albumin (3.4-5.0) g/dl Globulin gm/dL Albumin/Globulin Ratio (1-2) Ethyl Alcohol 0.09 (0.00) gm% Meds: Medications Generic Name Dose Route Start Last Admin Trade Name Toni PRN Reason Stop Dose Admin Sodium Chloride 1,000 mls @ 150 mls/hr 08/29/21 09:45 08/29/21 10:01 Normal Saline IV 150 mls/hr ASDIRECTED BLANCA Administration Sodium Chloride 100 mls @ 75 mls/hr 08/29/21 11:00 08/29/21 10:49 Normal Saline IV 75 mls/hr ASDIRECTED BLANCA Administration Sodium Chloride 10 ml 08/29/21 09:33 08/29/21 10:48 Sodium Chloride 0.9% 10 Ml Syringe FLUSH 10 ml ASDIRECTED PRN Administration Keep Vein Open Sodium Chloride 10 ml 08/29/21 09:35 Sodium Chloride 0.9% 10 Ml Syringe FLUSH ASDIRECTED PRN Keep Vein Open Discontinued Medications Generic Name Dose Route Start Last Admin Trade Name Toni PRN Reason Stop Dose Admin Aspirin 324 mg 08/29/21 09:33 08/29/21 10:01 Aspirin 81 Mg Tab.Chew PO 08/29/21 09:34 324 mg ONETIME ONE Administration Fentanyl 50 mcg 08/29/21 09:44 08/29/21 10:00 Fentanyl 100 Mcg/2 Ml Sdv IVPUSH 08/29/21 09:45 50 mcg ONETIME ONE Administration Iopamidol 100 ml 08/29/21 10:48 08/29/21 10:48 Iopamidol 755 Mg/Ml 100 Ml Bottle IVPUSH 08/29/21 10:49 100 ml ONETIME ONE Administration - Re-Assessments/Exams Free Text/Narrative Re-Assessment/Exam: 08/29/21 11:13 Hematology reveals a WBC of 6.54, hemoglobin 13.5, hematocrit 41.2, platelet count 248 Coagulation reveals a pro time of 10.3, INR 0.93, D-dimer 0.56 Chemistry reveals a sodium of 143, potassium 3.7, carbon dioxide 23, anion gap 18.7, BUN 18, creatinine 0.9, GFR greater than 60, glucose 150, magnesium 1.9, AST 67, ALT 154, alk phos 131, troponin less than 0.017, C-reactive protein less than 0.2, proBNP 244 Ethyl alcohol 0.09 08/29/21 11:17 Radiologist impression portable view of the chest comparison to prior chest x- ray on February 27, 2021; heart size and mediastinum are within normal limits. Lungs are clear with no acute parenchymal change. Bony structures show nothing acute. Electrostimulation device is seen overlying the thoracic spine. Impression: 1. Incidental finding. Nothing acute is seen on portable chest x- ray. 08/29/21 11:[address] of the chest: One. No findings of pulmonary embolism. 2. Fatty infiltration throughout the liver. 3. No acute abnormality is appreciated on CT study of the chest. Discussed the results of the lab and radiology studies with the patient. She states that she is still finding it so hard to breathe which cause her to have chest discomfort. Suspect patient does have significant anxiety. Patient states that after she received a dose of fentanyl this morning it helped her to calm down and breathe much easier and chest discomfort subsided at that time. Also discussed blood alcohol results with the patient and then she admits that she may have had 1 glass of wine before bed last evening. Patient will be given 1/2 mg of Ativan p.o. and discharged to home. It has been recommended that she follow-up with Dr. Patino this week in regards to her ER visit. Departure - Departure Time of Disposition: 11:34 Disposition: Home, Self-Care 01 Condition: Good Clinical Impression: Anxiety, Atypical chest pain Instructions: Managing Anxiety, Adult, Nonspecific Chest Pain, Adult, [id number] Referrals: Chance Patino MD [Primary Care Provider] - Forms: ED Department Discharge Additional Instructions: You were seen in the emergency department today with complaints of chest pain and shortness of breath that has been ongoing for approximately the past month. Full cardiac work-up was completed to include lab studies, EKG and a CT scan of the lungs. These were all essentially unremarkable, however your blood alcohol level on your visit today was 0.09 and your liver function studies were significantly elevated. CT scan also did indicate fatty liver disease. Recommend that you stop drinking any and all alcohol. Also recommend that you stop smoking. Suspect component of your chest discomfort and shortness of breath is due to anxiety. You were given an anxiety medication while in the emergency department. Recommend follow-up with your primary care provider this week for reevaluation. Should your condition worsen or change, do not hesitate returning to the emergency department. Sepsis Event Note (ED) - Evaluation Sepsis Screening Result: No Definite Risk - Focused Exam Vital Signs: Vital Signs Temp Pulse Resp BP Pulse Ox 08/29/21 09:20 97.9 F 116 H 28 H 136/65 98 - My Orders Last 24 Hours: My Active Orders 08/29/21 09:35 Sodium Chloride 0.9% [Saline Flush] 10 ml FLUSH ASDIRECTED PRN Saline Lock Insert [OM.PC] Stat 08/29/21 09:45 Sodium Chloride 0.9% [Normal Saline] 1,000 ml IV ASDIRECTED 08/29/21 11:00 Sodium Chloride 0.9% [Normal Saline] 100 ml IV ASDIRECTED - Assessment/Plan Last 24 Hours: My Active Orders 08/29/21 09:35 Sodium Chloride 0.9% [Saline Flush] 10 ml FLUSH ASDIRECTED PRN Saline Lock Insert [OM.PC] Stat 08/29/21 09:45 Sodium Chloride 0.9% [Normal Saline] 1,000 ml IV ASDIRECTED 08/29/21 11:00 Sodium Chloride 0.9% [Normal Saline] 100 ml IV ASDIRECTED
--- NOTE | 2021-08-29 10:00 | CR ---
Chest: Portable view of the chest is obtained. Comparison: Prior chest x-ray 02/27/21. Heart size and mediastinum are within normal limits. Lungs are clear with no acute parenchymal change. Bony structures show nothing acute. Electro-stimulating device is seen overlying the thoracic spine. Impression: 1. Incidental finding. Nothing acute is seen on portable chest x-ray. Diagnostic code #2
[2021-08-29] MEDS ORDERED: Iopamidol 755 Mg/ML 100 ML Bottle IVPUSH ONE (10:48)
[2021-08-29] MEDS ORDERED: Sodium Chloride 0.9% 100 ML IV SCH (11:00)
--- NOTE | 2021-08-29 11:20 | CT ---
CT chest Technique: Multiple axial sections were obtained from above the lung apices inferiorly through the lung bases. Intravenous contrast was utilized. Study has been performed as a pulmonary angiogram protocol. Comparison: Prior CT angiogram study of 03/27/18. Prior chest x-ray performed earlier on the date of this CT exam (9:48 AM) Findings: Pulmonary arteries are well opacified. No filling defects are seen to indicate pulmonary embolism. Thoracic aorta shows atherosclerotic change without aneurysm. Small mediastinal lymph nodes are seen which are felt to be normal. No axillary adenopathy is seen. Visualized upper abdominal structures show fatty infiltration throughout the liver. Lung window settings were reviewed. No acute parenchymal change is seen. Bone window settings were reviewed which show no acute osseous finding. Slight degenerative spurring is seen within the spine. Impression: 1. No findings of pulmonary embolism. 2. Fatty infiltration throughout the liver. 3. No acute abnormality is appreciated on CT study of the chest. Diagnostic code #2
[2021-08-29] MEDS ORDERED: LORazepam 0.5 MG Tab PO ONE (11:33)
[2021-08-29 11:57] VITALS: BP 142/85; PULSE 112
== END 2021-08-29 12:00 | disposition home or self-care (01) ==
LOC: JD.ED 09:12
DX: R07.89 Other chest pain (principal); F41.9 Anxiety disorder, unspecified; I10 Essential (primary) hypertension; E66.9 Obesity, unspecified; Z68.35 Body mass index [BMI] 35.0-35.9, adult; Z88.0 Allergy status to penicillin; Z88.1 Allergy status to other antibiotic agents; Z79.899 Other long term (current) drug therapy
CPT/HCPCS: 36415; 71045; 71275; 80053; 80307; 83735; 83880; 84484; 85025; 85379; 85610; 86140; 93005; 96374; 99285; A9270; J3010; J7030; Q9967

== ENCOUNTER 2022-05-28 12:26 | Emergency (ER) | payer MEDICARE, BC ==
[2022-05-28 13:37] VITALS: BP 183/107; PULSE 124
[2022-05-28] MEDS ORDERED: HYDROmorphone 0.5 MG/0.5 ML Syringe IVPUSH ONE (15:50)
[2022-05-28] MEDS ORDERED: Sodium Chloride 0.9% 1,000 ML IV STA (15:50)
[2022-05-28] MEDS ORDERED: Ondansetron 4 MG/2 ML SDV IVPUSH ONE (15:50)
[2022-05-28] MEDS ORDERED: Sodium Chloride 0.9% 10 ML Syringe FLUSH PRN (15:50)
[2022-05-28] MEDS ORDERED: Ketorolac 30 MG/ML SDV IVPUSH ONE (15:50)
[2022-05-28 17:13] LABS: ESTIMATED GFR 67 mL/min (>60)
== END 2022-05-28 18:15 | disposition left against medical advice (07) ==
LOC: JD.ED 12:26
DX: R51.9 Headache, unspecified (principal); I10 Essential (primary) hypertension; F17.210 Nicotine dependence, cigarettes, uncomplicated; E66.9 Obesity, unspecified; Z68.32 Body mass index [BMI] 32.0-32.9, adult; Z88.0 Allergy status to penicillin; Z88.1 Allergy status to other antibiotic agents; Z79.899 Other long term (current) drug therapy; Z90.49 Acquired absence of other specified parts of digestive tract; Z90.710 Acquired absence of both cervix and uterus
CPT/HCPCS: 36415; 70450; 70486; 80053; 85025; 86140; 96361; 96374; 96375; 99284; J1170; J1885; J2405; J3490; J7030

== ENCOUNTER 2023-08-26 10:35 | Emergency (ER) | payer MEDICARE, BC ==
[2023-08-26] MEDS ORDERED: Codeine/guaiFENesin 10-100 MG/5 ML Syrup 5 ML Cup PO ONE (11:04)
[2023-08-26 11:42] LABS: BASOPHILS PERCENT AUTO 0.4 % (0.0-1.0); EOSINOPHILS ABSOLUTE AUTO 0.1 K/mm3 (0.0-0.4); EOSINOPHILS PERCENT AUTO 1.4 % (0.0-6.0); HEMATOCRIT 42.6 % (37.0-47.0); HEMOGLOBIN 14.5 gm/dl (12.0-16.0); IMMATURE GRAN ABSOLUTE AUTO 0.02 K/mm3 (0.00-0.05); IMMATURE GRAN PERCENT AUTO 0.4 % (0.0-0.4); LYMPHOCYTES ABSOLUTE AUTO 2.4 K/mm3 (1.0-4.8); LYMPHOCYTES PERCENT AUTO 46.5 % (24.0-44.0); MEAN CORPUSCULAR VOLUME 96.8 fl (83.0-99.0); MEAN PLATELET VOLUME 8.6 fl (9.4-12.3); MONOCYTES ABSOLUTE AUTO 0.4 K/mm3 (0.0-0.8); MONOCYTES PERCENT AUTO 8.6 % (0.0-8.0); NEUTROPHILS ABSOLUTE AUTO 2.2 K/mm3 (1.8-7.7); NEUTROPHILS PERCENT AUTO 42.7 % (41.0-71.0); PLATELET COUNT,PLT 230 K/mm3 (150-400); WHITE BLOOD CELL COUNT,WBC 5.12 K/mm3 (3.9-11.3)
[2023-08-26 12:13] LABS: A/G RATIO 1.1 (1-2); ALANINE AMINOTRANSFERASE,ALT 77 U/L (14-59); ALBUMIN 3.9 g/dl (3.4-5.0); ALKALINE PHOSPHATASE 98 U/L (46-116); ANION GAP 17.7 (5-15); ASPARTATE AMNIOTRANSFERASE,AST 51 U/L (15-37); BILIRUBIN TOTAL 0.3 mg/dL (0.2-1.0); BLOOD UREA NITROGEN,BUN 10 mg/dL (7-18); BUN/CREATININE RATIO 14.3 (14-18); C-REACTIVE PROTEIN <0.2 mg/dL (<1.0); CALCIUM 9.5 mg/dL (8.5-10.1); CARBON DIOXIDE,CO2 23 mEq/L (21-32); CHLORIDE,CL 104 mEq/L (98-107); CREATININE 0.7 mg/dL (0.55-1.02); EST CRCL DRUG DOSING (CG) 56.56 mL/min; ESTIMATED GFR 90 mL/min (>60); GLUCOSE RANDOM 101 mg/dL (70-99); MAGNESIUM 1.8 mg/dL (1.8-2.4); POTASSIUM,K 3.7 mEq/L (3.5-5.1); PROTEIN TOTAL,TP 7.4 g/dl (6.4-8.2); SODIUM,NA 141 mEq/L (136-145)
[2023-08-26 14:17] VITALS: BP 121/83; PULSE 105
== END 2023-08-26 13:07 | disposition home or self-care (01) ==
LOC: JD.ED 10:35
DX: R07.89 Other chest pain (principal); J44.9 Chronic obstructive pulmonary disease, unspecified; I10 Essential (primary) hypertension; E66.9 Obesity, unspecified; Z68.33 Body mass index [BMI] 33.0-33.9, adult; Z90.710 Acquired absence of both cervix and uterus; Z90.49 Acquired absence of other specified parts of digestive tract; Z88.0 Allergy status to penicillin; Z88.8 Allergy status to other drugs, medicaments and biological substances; Z79.899 Other long term (current) drug therapy
CPT/HCPCS: 36415; 71250; 80053; 83735; 83880; 84484; 85025; 86140; 93005; 99284; A9270; 93010; 99283

== ENCOUNTER 2024-09-09 09:58 | Emergency (ER) | payer MEDICARE, BC ==
[2024-09-09] MEDS ORDERED: Sodium Chloride 0.9% 10 ML Syringe FLUSH PRN (10:19)
[2024-09-09] MEDS: LORazepam 2 MG/ML SDV IV ONE (10:32)
[2024-09-09 10:46] LABS: BASOPHILS PERCENT AUTO 0.5 % (0.0-1.0); EOSINOPHILS ABSOLUTE AUTO 0.1 K/mm3 (0.0-0.4); EOSINOPHILS PERCENT AUTO 0.9 % (0.0-6.0); HEMATOCRIT 48.3 % (37.0-47.0); IMMATURE GRAN ABSOLUTE AUTO 0.03 K/mm3 (0.00-0.05); IMMATURE GRAN PERCENT AUTO 0.3 % (0.0-0.4); LYMPHOCYTES ABSOLUTE AUTO 2.1 K/mm3 (1.0-4.8); LYMPHOCYTES PERCENT AUTO 23.9 % (24.0-44.0); MEAN CORPUSCULAR HEMOGLOBIN 33.1 pg (28.0-32.0); MEAN CORPUSCULAR HGB CONC 33.1 g/dl (32.0-36.0); MEAN PLATELET VOLUME 9.3 fl (9.4-12.3); MONOCYTES ABSOLUTE AUTO 0.8 K/mm3 (0.0-0.8); MONOCYTES PERCENT AUTO 8.7 % (0.0-8.0); NEUTROPHILS ABSOLUTE AUTO 5.7 K/mm3 (1.8-7.7); NEUTROPHILS PERCENT AUTO 65.7 % (41.0-71.0); PLATELET COUNT,PLT 225 K/mm3 (150-400); RED BLOOD CELL COUNT 4.83 M/mm3 (4.10-5.30); WHITE BLOOD CELL COUNT,WBC 8.61 K/mm3 (3.9-11.3)
[2024-09-09] MEDS: LORazepam 1 MG Tab PO ONE (10:46)
[2024-09-09 10:52] LABS: A/G RATIO 1.3 (1-2); ALANINE AMINOTRANSFERASE,ALT 99 U/L (14-59); ALBUMIN 4.6 g/dl (3.4-5.0); ALKALINE PHOSPHATASE 113 U/L (46-116); ANION GAP 15.4 (5-15); ASPARTATE AMNIOTRANSFERASE,AST 57 U/L (15-37); BILIRUBIN TOTAL 0.6 mg/dL (0.2-1.0); BLOOD UREA NITROGEN,BUN 20 mg/dL (7-18); CARBON DIOXIDE,CO2 26 mEq/L (21-32); CHLORIDE,CL 100 mEq/L (98-107); ESTIMATED GFR 58 mL/min (>60); GLUCOSE RANDOM 108 mg/dL (70-99); LIPASE 32 U/L (16-77); MAGNESIUM 1.9 mg/dL (1.8-2.4); POTASSIUM,K 3.4 mEq/L (3.5-5.1); PROTEIN TOTAL,TP 8.1 g/dl (6.4-8.2); SODIUM,NA 138 mEq/L (136-145); TROPONIN I HIGH SENSITIVITY 5 pg/mL (<=51); TSH 1.207 uIU/mL (0.358-3.74)
[2024-09-09] MEDS: LORazepam 2 MG/ML SDV IVPUSH ONE (11:26)
[2024-09-09 11:30] VITALS: BP 133/82; PULSE 112
[2024-09-09] MEDS: Morphine 4 MG/ML Syringe IVPUSH ONE (12:34)
== END 2024-09-09 13:27 | disposition left against medical advice (07) ==
LOC: JD.ED 09:58
DX: R00.2 Palpitations (principal); R07.9 Chest pain, unspecified; I10 Essential (primary) hypertension; E66.9 Obesity, unspecified; Z90.49 Acquired absence of other specified parts of digestive tract; Z90.710 Acquired absence of both cervix and uterus; Z88.0 Allergy status to penicillin; Z88.1 Allergy status to other antibiotic agents; Z79.51 Long term (current) use of inhaled steroids; Z79.890 Hormone replacement therapy; Z79.52 Long term (current) use of systemic steroids; Z79.899 Other long term (current) drug therapy; Z68.31 Body mass index [BMI] 31.0-31.9, adult
CPT/HCPCS: 36415; 71045; 80053; 83690; 83735; 83880; 84443; 84484; 85025; 96374; 96375; 96376; 99285; J2060; J2270; 93010; 99284

== ENCOUNTER 2024-10-26 09:39 | Emergency (ER) | payer MEDICARE, BC ==
[2024-10-26] MEDS ORDERED: Sodium Chloride 0.9% 10 ML Syringe FLUSH PRN (09:52)
[2024-10-26 09:53] VITALS: BP 157/112; PULSE 105
[2024-10-26] MEDS: methylPREDNISolone Sodium Succinate 125 MG/2 ML SDV IVPUSH ONE (10:24)
[2024-10-26 10:44] LABS: BASOPHILS PERCENT AUTO 0.6 % (0.0-1.0); EOSINOPHILS ABSOLUTE AUTO 0.1 K/mm3 (0.0-0.4); EOSINOPHILS PERCENT AUTO 1.3 % (0.0-6.0); HEMATOCRIT 42.7 % (37.0-47.0); HEMOGLOBIN 14.1 gm/dl (12.0-16.0); IMMATURE GRAN ABSOLUTE AUTO 0.02 K/mm3 (0.00-0.05); IMMATURE GRAN PERCENT AUTO 0.4 % (0.0-0.4); LYMPHOCYTES ABSOLUTE AUTO 1.9 K/mm3 (1.0-4.8); LYMPHOCYTES PERCENT AUTO 36.5 % (24.0-44.0); MEAN PLATELET VOLUME 9.1 fl (9.4-12.3); MONOCYTES ABSOLUTE AUTO 0.5 K/mm3 (0.0-0.8); NEUTROPHILS ABSOLUTE AUTO 2.7 K/mm3 (1.8-7.7); NEUTROPHILS PERCENT AUTO 51.2 % (41.0-71.0); PLATELET COUNT,PLT 263 K/mm3 (150-400); RED BLOOD CELL COUNT 4.27 M/mm3 (4.10-5.30); WHITE BLOOD CELL COUNT,WBC 5.31 K/mm3 (3.9-11.3)
[2024-10-26 11:01] LABS: A/G RATIO 1.1 (1-2); ANION GAP 18.8 (5-15); BILIRUBIN TOTAL 0.3 mg/dL (0.2-1.0); BUN/CREATININE RATIO 18.6 (14-18); CALCIUM 9.4 mg/dL (8.5-10.1); CREATININE 0.7 mg/dL (0.55-1.02); EST CRCL DRUG DOSING (CG) 55.68 mL/min; MAGNESIUM 2.1 mg/dL (1.8-2.4); POTASSIUM,K 3.8 mEq/L (3.5-5.1); PROTEIN TOTAL,TP 7.6 g/dl (6.4-8.2)
[2024-10-26] MEDS: Albuterol/Ipratropium 3.0-0.5 MG/3 ML Neb Soln NEB SCH (11:08)
[2024-10-26 11:20] LABS: CORONAVIRUS COVID-19 NAA NEGATIVE (NEGATIVE); INFLUENZA A NAA NEGATIVE (NEGATIVE); RESPIRATORY SYNCYTIAL VIR NAA NEGATIVE (NEGATIVE)
[2024-10-26 12:26] LABS: APPEARANCE,URINE CLEAR (Clear); BILIRUBIN,URINE NEGATIVE (Negative); COLOR,URINE YELLOW (Yellow); GLUCOSE,URINE NEGATIVE (Negative); KETONES,URINE NEGATIVE (Negative); LEUKOCYTE ESTERASE,URINE NEGATIVE (Negative); NITRITE,URINE NEGATIVE (Negative); OCCULT BLOOD,URINE NEGATIVE (Negative); PH,URINE 6.5 (5.0-8.0); PROTEIN,URINE NEGATIVE (Negative); UROBILINOGEN,URINE 0.2 (0.2-1.0)
[2024-10-26] MEDS: Acetaminophen 325 MG Tab PO ONE (12:41)
[2024-10-26] MEDS: Ketorolac 15 MG/ML SDV IVPUSH ONE (13:23)
== END 2024-10-26 14:21 | disposition home or self-care (01) ==
LOC: JD.ED 09:39
DX: J44.1 Chronic obstructive pulmonary disease with (acute) exacerbation (principal); R07.81 Pleurodynia; I48.91 Unspecified atrial fibrillation; I10 Essential (primary) hypertension; I25.10 Atherosclerotic heart disease of native coronary artery without angina pectoris; F17.210 Nicotine dependence, cigarettes, uncomplicated; Z88.0 Allergy status to penicillin; Z88.1 Allergy status to other antibiotic agents; Z88.8 Allergy status to other drugs, medicaments and biological substances; Z79.899 Other long term (current) drug therapy; Z79.01 Long term (current) use of anticoagulants; Z95.5 Presence of coronary angioplasty implant and graft
CPT/HCPCS: 0241U; 36415; 71045; 71100; 80053; 81003; 83605; 83690; 83735; 83880; 84484; 85025; 87040; 93005; 94640; 96374; 96375; 99285; A9270; J1885; J2919; 93010; 99284; J7620-GY

== ENCOUNTER 2025-03-03 07:14 | Day surgery (SDC) | payer MEDICARE, BC ==
[~2025-03-03 07:14] MED LIST: Sodium Chloride 0.9% 10 ML Syringe FLUSH PRN; Sodium Chloride 0.9% 10 ML Syringe FLUSH SCH
[2025-03-03] MEDS ORDERED: propofoL 500 MG/50 ML 50 ML ONE (07:22)
[2025-03-03] MEDS ORDERED: Lidocaine 2% 5 ML SDV ONE (07:23)
[2025-03-03] MEDS: Lactated Ringers 1,000 ML IV SCH (08:00)
[2025-03-03] MEDS ORDERED: Midazolam 1 MG/ML 2 ML SDV ONE ×2 (08:08→12:52)
[2025-03-03] MEDS ORDERED: Propofol 200 MG/20 ML SDV ONE (09:19)
[2025-03-03 10:44] VITALS: BP 130/74; PULSE 82
== END 2025-03-03 10:35 | disposition home or self-care (01) ==
LOC: JD.SDS 07:14
PROVIDERS: ATTEND Surgery
DX: D12.2 Benign neoplasm of ascending colon (principal); D12.3 Benign neoplasm of transverse colon; D12.4 Benign neoplasm of descending colon; D12.5 Benign neoplasm of sigmoid colon; K29.50 Unspecified chronic gastritis without bleeding; K21.00 Gastro-esophageal reflux disease with esophagitis, without bleeding; K22.89 Other specified disease of esophagus; K57.30 Diverticulosis of large intestine without perforation or abscess without bleeding; K64.8 Other hemorrhoids; Z86.0101 Personal history of adenomatous and serrated colon polyps; J44.9 Chronic obstructive pulmonary disease, unspecified; F41.9 Anxiety disorder, unspecified; Z79.899 Other long term (current) drug therapy; Z88.0 Allergy status to penicillin; Z88.1 Allergy status to other antibiotic agents; Z88.8 Allergy status to other drugs, medicaments and biological substances
CPT/HCPCS: 43239; 45380; 45381; J2003; J2250; J2704; J7120; 00813; 99100